=== PATIENT | female | born 1945 | race African-American/Black ===

== ENCOUNTER 2024-07-15 15:07 | Outpatient (CLI) | payer MEDICARE, SELFPAY ==
--- NOTE | ~2024-07-15 | MM_ITS ---
EXAMINATION: MM screening eladio BI w lottie HISTORY: Screening mammogram, family history of breast cancer in her mother. TECHNIQUE: Craniocaudal and mediolateral oblique 3-D tomosynthesis images were obtained and synthetic 2-D images were generated. CAD analysis was submitted and interpreted. COMPARISON: No prior mammogram is available for comparison at this institution. BREAST PARENCHYMAL COMPOSITION:Not Dense. The breasts are almost entirely fatty FINDINGS: No suspicious mass, calcification, or architectural distortion are identified in either haley ast to suggest malignancy. There has been no suspicious interval change. IMPRESSION: No mammographic evidence of malignancy. Recommend routine screening mammography in one year. BI-RADS Category 1: Negative Reviewed, dictated and finalized at location .
--- OUTSIDE RECORDS SUMMARY | 2024-07-15 16:25 | XMS_ITS | Referral Summary ---
Author Organization [address] Address [address] [place] [id number] Care Team Providers Care Gravel Weigher Name Role Phone Rajan Rodriguez MD Primary Care Provider [phone] Allergies Active Allergy Reactions Criticality Noted Date Comments Lisinopril Cough Low 12/16/2018 Sulfa (Sulfonamide Antibiotics) Hives Reaction: Hives, , Medications labetaloL (NORMODYNE,HOLLOWAY DATE) 200 mg tablet TAKE 1 TABLET(200 MG) BY MOUTH TWICE DAILY 180 tablet 3 02/04/2023 Active fluticasone propionate (FLONASE) 50 mcg/actuation nasal spray SHAKE LIQUID AND USE 2 SPRAYS IN EACH NOSTRIL DAILY 48 g 3 06/12/2023 Active losartan (COZAAR) 50 mg tablet TAKE 1 TABLET(50 MG) BY MOUTH DAILY 90 tablet 3 08/25/2023 Active ALPRAZolam (XANAX) 0.25 mg tablet Take 1 tablet (0.25 mg total) by mouth 3 (three) times a day as needed for anxiety 20 tablet 10/29/2023 Active atorvastatin (LIPITOR) 20 mg tablet TAKE 1 TABLET BY MOUTH DAILY 90 tablet 3 02/15/2024 Active Active Problems Problem Noted Date Diagnosed Date Chronic rhinitis 01/12/2020 Assessment & Plan (02/13/2023 12:28 PM CDT): Recurrent rhinitis. Assessment & Plan (07/16/2022 5:27 PM MOLD TOOLING TECHNICIAN): Continue with OTC Flonase and p.r.n. OTC antihistamines. Assessment & Plan (01/12/2020 7:46 PM CDT): Flonase 2 sprays into each nostril while looking down over the sink, do not sniff in or blow nose after use for at least 30 minutes Bilateral hearing loss 01/12/2020 Assessment & Plan (01/12/2020 7:46 PM CDT): Hearing test with [facility] Impacted cerumen of left ear 01/12/2020 Assessment & Plan (01/12/2020 7:45 PM CDT): Avoid ear cleaning techniques Avoid water to ears Candidiasis 10/03/2015 Pure hypercholesterolemia 07/11/2015 Overview (08/15/2016): Hyperlipidemia LDL goal <130 Assessment & Plan (08/27/2023 9:05 PM CDT): Target LDL less than 100. Continue current diet and atorvastatin. Assessment & Plan (02/13/2023 12:29 PM CDT): Target LDL less than 100. Continue current diet and atorvastatin. Check CMP and FLP. Assessment & Plan (07/16/2022 5:26 PM MOLD TOOLING TECHNICIAN): Target LDL less than 100. Continue current diet and atorvastatin. Assessment & Plan (12/20/2021 5:15 PM CDT): Target LDL less than 100. Continue current diet and atorvastatin. Check CMP and FLP. Atopic rhinitis 09/25/2013 Overview (08/14/2016): ALLERGIC RHINITIS NOS Deformity of foot 09/25/2013 Overview (08/14/2016): Foot Deformity Family history of malignant neoplasm of gastrointestinal tract 09/25/2013 Overview (08/14/2016): FAMILY HX-GI MALIGNANCY Assessment & Plan (02/13/2023 12:29 PM CDT): Patient still wishes to postpone colonoscopy. Benign hypertension 09/25/2013 Overview (08/16/2016): BENIGN HYPERTENSION Assessment & Plan (08/27/2023 9:06 PM CDT): Target BP less than 130/80. Continue current diet, labetalol and losartan. Assessment & Plan (02/13/2023 12:29 PM CDT): Target BP less than 130/80. Continue current diet, labetalol and losartan. Check CBC and CMP. Assessment & Plan (07/16/2022 5:27 PM MOLD TOOLING TECHNICIAN): Target BP <140/90. Continue current diet, labetalol and losartan. Assessment & Plan (12/20/2021 5:15 PM CDT): Target BP <140/90. Continue current diet and medications. Check CBC and CMP. History of colonic polyps 03/31/2012 Overview (08/15/2016): PRSNL HST COLONIC POLYPS Assessment & Plan (08/27/2023 9:05 PM CDT): Last colonoscopy 2015. Assessment & Plan (02/13/2023 12:29 PM CDT): Patient still wishes to postpone colonoscopy. Assessment & Plan (07/16/2022 5:26 PM MOLD TOOLING TECHNICIAN): Patient due for colonoscopy. Encouraged patient to schedule. Resolved Problems Problem Noted Date Diagnosed Date Resolved Date Primary osteoarthritis of both knees 07/11/2015 10/19/2019 Overview (08/15/2016): Primary osteoarthritis of both knees Adiposity 11/22/2014 12/26/2016 Overview (08/15/2016): Obesity Multiple-type hyperlipidemia 09/25/2013 12/26/2016 Overview (08/14/2016): MIXED HYPERLIPIDEMIA Pain in joint involving pelv ic region and thigh 09/01/2013 10/19/2019 Overview (08/14/2016): JOINT PAIN-PELVIS Immunizations Immunization Administration Dates Next Due Influenza, Quadrivalent, Hig h Dose, Preservative Free, Intrr 02/13/2023,02/04/2020 Influenza, Split 02/25/2011,03/09/2010 Influenza, Trivalent, High D ose, Split, Preservative Free, Intramuscular 02/26/2019,02/26/2019,02/24/2018,03/21,01/16/2016,03/13/2015 Influenza, Trivalent, IM (MDV) 4,02/09/2014,03/12/2013,03/03,02/10/2012,03/01/2008 Influenza, Unspecified 04/11/2022,2020,02/25/2018,02/25,03/22/2017,03/22/2017 Moderna SARS-CoV-2 Monovalen t Vaccination (12+ YRS) 03/28/2021,07/14/2020,06/16/2020 Moderna Sars-cov-2 Bivalent Vaccine 50 Mcg/0.5 mL (12+ YRS)-Blue/Carter 04/11/2022 Pneumococcal Conjugate PCV 13 03/13/2015, 015 Pneumococcal Polysaccharide PPV23 12/01/2008 Td, adsorbed 08/10/2007 ZOSTER LIVE 08/10/2007 Social History Tobacco Use Types Packs/Day Years Used Date Smoking Tobacco: Never Smokeless Tobacco: Never Tobacco Cessation:Counseling Given: Not Answered Alcohol Use Standard Drinks/Week Comments Yes 0 (1 standard drink = 0.6 oz pur e alcohol) PHQ-2 Answer Date Recorded PHQ-2 Total Score (If total score is 3 or more points, staff should administer the PHQ-9) 0 02/13/2023 Comments No Sex and Gender Information Value Date Recorded Sex Assigned at Not on file Legal Sex Female 7:41 PM MOLD TOOLING TECHNICIAN Gender Identity Not on file Sexual Orientation Not on file 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 Not on file Not on file Not on file Last Filed Vital Signs Vital Sign Reading Time Taken Comments Blood Pressure 129/74 08/27/2023 1:18 PM CDT Pulse 76 08/27/2023 12:59 PM CDT Temperature 37.1 C (98.8 F) 03/11/2022 5:43 PM CDT Respiratory Rate 18 03/11/2022 5:43 PM CDT Oxygen Saturation 96% 08/27/2023 12:59 PM CDT Inhaled Oxygen Concentration - - Weight 115 kg (253 lb 8 oz) 08/27/2023 12:59 PM CDT Height 160.7 cm (5' 3.25 ) 08/27/2023 12:59 PM C DT Body Mass Index 44.55 08/27/2023 12:59 PM CDT Plan of Treatment Not on file Procedures Procedure Name Priority Date/Time Associated Diagnosis Comments COLONOSCOPY Routine 05/09/2016 from Last 3 Months or Most Recently Relevant to Health Maintenance Results * Colonoscopy (05/09/2016) Anatomical Region Laterality Modality Other Rajan Rodriguez MD ENDOSCOPY PROCEDURES Final Re sult from Last 3 Months or Most Recently Relevant to Health Maintenance Insurance MEDICARE SOLUTIONS [facility] MEDICARE [facility] MEDICARE Care Teams Gravel Weigher Relationship Specialty Start Date End Date Rajan Rodriguez MD [address] [place] [address] DR Leod[address] LINN [address] [place] [id number] PCP - General 08/09/16
--- OUTSIDE RECORDS SUMMARY | 2024-07-15 16:25 | XMS_ITS | Encounter Summary ---
Author Organization [facility] Address [address] [facility] [place] [address] Care Team Providers Care Automobile Mechanic Name Role Phone Miguel Ángel FONTENOT MD, Oziel Unavailable [phone] Rajan Rodriguez MD Primary Care Provider [phone] Encounter Details Date Type Department Care Team (Late st Contact Info) Description 07/22/2016 [facility] Outpatient Visit [facility] Orthopedics [address] [place] [address], [address] [address] Unknown, Provider Social History Tobacco Use Types Packs/Day Years Used Date Smoking Tobacco: Never Alcohol Use Standard Drinks/Week Comments Yes 0 (1 standard drink = 0.6 oz pur e alcohol) RARE Sex and Gender Information Value Date Recorded Sex Assigned at Not on file Gender Identity Not on file Sexual Orientation Not on file documented as of this encounter Functional Status Functional Status Response Date of Assess ment Is person deaf or have serious hearing difficult y? No 07/07/2016 Is person blind or have serious difficulty seein g? No 07/07/2016 Does person have serious dif ficulty walking/climbing stairs? No 07/07/2016 Does person have difficulty dressing/bathing? No 07/07/2016 Does person have difficulty doing errands alone? No 07/07/2016 Cognitive Status Response Date of Assessm ent Does person have difficulty concentrating/remembering/making decisions? No 07/07/2016 documented as of this encounter Plan of Treatment Not on file documented as of this encounter Visit Diagnoses Not on filedocumented in this encounter Care Teams Automobile Mechanic Relationship Specialty Start Date End Date Rajan Rodriguez MD [address] [address] [place] [facility] [address] [place] [address] PCP - General Internal Medicine 08/01/14 [place] [address] [address] [facility] [place] [address] [place] [address] Orthopedic Surgery 08/01/14 documented as of this encounter
--- OUTSIDE RECORDS SUMMARY | 2024-07-15 16:25 | XMS_ITS | Encounter Summary ---
Author Organization [facility] Medical [facility] Address [address] [facility] [address] [place] [address] Care Team Providers Care Natural Gas Field Processing Supervisor Name Role Phone Rajan Rodriguez MD Primary Care Provider [phone] Rajan Rodriguez MD Primary Care Provider [phone] Rajan Rodriguez MD Primary Care Provider [phone] Rajan Rodriguez MD Primary Care Provider [phone] Rajan Rodriguez MD Primary Care Provider [phone] Encounter Details Date Type Department Care Team (Late st Contact Info) Description 03/10/2009 Orders Only [facility] [address] [place] [address] Scanning, Provider Social History Tobacco Use Types Packs/Day Years Used Date Smoking Tobacco: Never Assessed Comments Unknown Sex and Gender Information Value Date Recorded Sex Assigned at Not on file Legal Sex Female 7:41 PM PROMOS EXECUTIVE PRODUCER Gender Identity Not on file Sexual Orientation Not on file documented as of this encounter Plan of Treatment Not on file documented as of this encounter Procedures Procedure Name Priority Date/Time Associated Diagnosis Comments GI - RESULT 03/10/2009 documented in this encounter Results * GI - RESULT (03/10/2009) Anatomical Region Laterality Modality Other us Provider Scanning Final Result documented in this encounter Visit Diagnoses Not on filedocumented in this encounter Care Teams Natural Gas Field Processing Supervisor Relationship Specialty Start Date End Date Lieu, Rajan H., MD [address] [place] [address] PCP - General 08/09/16 Rajan Rodriguez MD [facility] [address] [place] [address] PCP - General 06/13/16 08/08/16 Rajan Rodriguez MD [facility] [address] [place] [address] PCP - General 03/19/16 06/12/16 Rajan Rodriguez MD [facility] [place] [address] PCP - General 07/11/15 03/18/16 Rajan Rodriguez MD [facility] [address] [place] [address] PCP - General 11/23/07 07/10/15 documented as of this encounter
--- OUTSIDE RECORDS SUMMARY | 2024-07-15 16:25 | XMS_ITS | Encounter Summary ---
Author Organization [facility] Address [address] [facility] [place] [address] Care Team Providers Care It Application Development Manager Name Role Phone Miguel Ángel FONTENOT MD, Oziel Unavailable [phone] Rajan Rodriguez MD Primary Care Provider [phone] Encounter Details Date Type Department Care Team (Late st Contact Info) Description 02/15/2015 Therapy Visit [facility] Orthopedics [address] [facility] [address] [place] [address] [place] [address] [address] Social History Tobacco Use Types Packs/Day Years Used Date Smoking Tobacco: Never Alcohol Use Standard Drinks/Week Comments Yes 0 (1 standard drink = 0.6 oz pur e alcohol) Sex and Gender Information Value Date Recorded Sex Assigned at Not on file Gender Identity Not on file Sexual Orientation Not on file documented as of this encounter Functional Status Functional Status Response Date of Assess ment Is person deaf or have serious hearing difficult y? No 01/24/2015 Is person blind or have serious difficulty seein g? No 01/24/2015 Does person have serious dif ficulty walking/climbing stairs? No 01/24/2015 Does person have difficulty dressing/bathing? No 01/24/2015 Does person have difficulty doing errands alone? No 01/24/2015 Cognitive Status Response Date of Assessm ent Does person have difficulty concentrating/remembering/making decisions? No 01/24/2015 documented as of this encounter Plan of Treatment Not on file documented as of this encounter Visit Diagnoses Not on filedocumented in this encounter Care Teams It Application Development Manager Relationship Specialty Start Date End Date Rajan Rodriguez MD [address] [facility] [address] [place] [facility] [address] [place] [address] PCP - General Internal Medicine 08/01/14 [place] [address] [address] [facility] [address] [place] [address] Orthopedic Surgery 08/01/14 documented as of this encounter
--- OUTSIDE RECORDS SUMMARY | 2024-07-15 16:25 | XMS_ITS | Encounter Summary ---
Author Organization [facility] Address [address] [address] Care Team Providers Care Vault Cashier Name Role Phone Rajan Rodriguez MD Primary Care Provider [phone] Rajan Rodriguez MD Primary Care Provider Rajan Rodriguez MD Primary Care Provider [phone] Encounter Details Date Type Department Care Team (Late st Contact Info) Description 06/11/2016 Orders Only [facility] at [facility] ProviderKenyatta MD [address] [place] [id number] Social History Tobacco Use Types Packs/Day Years Used Date Smoking Tobacco: Never Assessed Comments Unknown Sex and Gender Information Value Date Recorded Sex Assigned at Not on file Legal Sex Female 7:41 PM WRITER TECHNICAL PUBLICATIONS Gender Identity Not on file Sexual Orientation Not on file documented as of this encounter Plan of Treatment Not on file documented as of this encounter Procedures Procedure Name Priority Date/Time Associated Diagnosis Comments CARDIOLOGY REPORT 06/11/2016 documented in this encounter Results * CARDIOLOGY REPORT (06/11/2016) Anatomical Region Laterality Modality Other Narrative 06/11/2016 Ordered by an unspecified provider. Historical Provider [facility] MARILOU PATEL Final Result documented in this encounter Visit Diagnoses Not on filedocumented in this encounter Care Teams Vault Cashier Relationship Specialty Start Date End Date Rajan Rodriguez MD [facility] [address] [place] [address] PCP - General 08/09/16 Rajan Rodriguez MD [address] [place] [address] PCP - General 06/13/16 08/08/16 Rajan Rodriguez MD [address] [place] [address] PCP - General 03/19/16 06/12/16 documented as of this encounter
--- OUTSIDE RECORDS SUMMARY | 2024-07-15 16:25 | XMS_ITS | Patient Health Summary ---
Author Organization [facility] Address [address] [place] [address] Care Team Providers Care Scientific Advisor Name Role Phone Miguel Ángel FONTENOT MD, Oziel Unavailable [phone] Rajan Rodriguez MD Primary Care Provider [phone] Note from [facility],non-owned Affiliates and Associated Physician Practices is amultiple site organization consisting of ambulatory clinics and hospital sitesin [place], [place], [place] and [place]. This disclosure is being madepursuant to the Care Everywhere program and may not contain all information available regarding this patient. Last updated 18.[facility] Allergies * Sulfa Drugs(Swelling) Medications * Be aware that medications may not be up to date on this document. Alwaysverify current medications with the patient. * lisinopril (PRINIVIL; ZESTRIL) 20 MG tablet Take 20 mg by mouth once daily. * ezetimibe (ZETIA) 10 MG tablet Take 10 mg by mouth once daily. * tetrahydrozoline (VISINE) 0.05 % ophthalmic solution Instill 1 Drop into both eyes as needed for Itchy Eyes * labetalol (NORMODYNE; TRANDATE) 100 MG tablet(Started 07/07/2016) Take 0.5 Tabs by mouth 2 times daily 1 refill remaining * Cetirizine HCl (ZYRTEC ALLERGY PO) * Loperamide-Simethicone (IMODIUM ADVANCED PO) * senna-docusate (SENOKOT-S) 8.6-50 MG tablet(Started 02/01/2017) Take 1 Tab by mouth 2 times daily * HYDROcodone-acetaminophen (NORCO) 10-325 MG tablet(Started 02/01/2017) Take 0.5-1 Tabs by mouth every 6 hours as needed for Pain * HYDROcodone-acetaminophen (NORCO) 7.5-325 MG tablet(Started 02/20/2017) Take 1 tablet by mouth every 8 hours as needed for Pain Active Problems Problem Noted Date Diagnosed Date Knee joint replacement status 01/30/2017 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 Bilateral hip pain 08/01/2014 Social History Tobacco Use Types Packs/Day Years Used Date Smoking Tobacco: Never Smokeless Tobacco: Never Alcohol Use Standard Drinks/Week Comments Yes 0 (1 standard drink = 0.6 oz pur e alcohol) RARE Sex and Gender Information Value Date Recorded Sex Assigned at Not on file Gender Identity Not on file Sexual Orientation Not on file Last Filed Vital Signs Vital Sign Reading Time Taken Comments Blood Pressure 137/51 02/02/2017 7:53 AM CDT Pulse 80 02/02/2017 7:53 AM CDT Temperature 36.7 C (98.1 F) 02/02/2017 7:53 AM CDT Respiratory Rate 18 02/02/2017 7:53 AM CDT Oxygen Saturation 100% 02/02/2017 7:53 AM CDT Inhaled Oxygen Concentration 21% 09/14/2014 7 :10 PM CDT Weight 112.1 kg (247 lb 3.2 oz) 01/30/2017 6:01 AM CDT Height 162.6 cm (5' 4 ) 01/30/2017 6:01 AM CDT Body Mass Index 42.43 01/30/2017 6:01 AM CDT Medical Devices Implanted Type Area Log Getter Device Identifier Shelf Expiration Date Model / Serial / Lot Acetabular Cup Implanted:Qty: 1 on 09/13/2014 by Oziel Del Rosario IV, MD at [facility] Right: Hip [employer] 10/11/2023 [id number] / / [id number] Acetabular Liner Implanted:Qty: 1 on 09/13/2014 by Oziel Del Rosario IV, MD at [facility] Right: Hip [employer] 06/12/2019 [id number] / / [id number] Scrw Selftap Lo Prof Ti 6.5 X 35mm Implanted:Qty: 1 on 09/13/2014 by Oziel Del Rosario IV, MD at [facility] Right: Hip [employer] 07/10/2024 [id number] / / [id number] High Offset Femoral Stem Implanted:Qty: 1 on 09/13/2014 by Oziel Del Rosario IV, MD at [facility] Right: Hip [employer] 02/10/2024 [id number] / / [id number] Ceramic Head Implanted:Qty: 1 on 09/13/2014 by Oziel Del Rosario IV, MD at [facility] Right: Hip [employer] 08/10/2024 [id number] / / [id number] Taper Adapter Implanted:Qty: 1 on 09/13/2014 by Oziel Del Rosario IV, MD at [facility] Right: Hip [employer] 06/12/2024 [id number] / / [id number] Biomet Acetabular Liner, 36mm Implanted:Qty: 1 on 01/24/2015 by Oziel Del Rosario IV, MD at [facility] Left: Hip 11/15/2019 [id number] / / [id number] Bi[employer] Ceramic Head, 36mm Implanted:Qty: 1 on 01/24/2015 by Oziel Del Rosario IV, MD at [facility] Left: Hip 12/08/2024 650-1057 / / [id number] Biomet, Reduced Distal High Offset Femoral Stem, 11 X 107 Implanted:Qty: 1 on 01/24/2015 by Oziel Del Rosario IV, MD at [facility] Left: Hip 07/09/2024 [id number] / / [id number] Bi[employer] Taper Adapter, Minus 3mm Implanted:Qty: 1 on 01/24/2015 by Oziel Del Rosario IV, MD at [facility] Left: Hip 01/05/2025 [id number] / / [id number] [employer] Acetabular Shell, 52mm Implanted:Qty: 1 on 01/24/2015 by Oziel Del Rosario IV, MD at [facility] Left: Hip 12/13/2024 [id number] / / [id number] Gautam Bone [place]-G Hv 40/20 Implanted:Qty: 1 on 07/04/2016 by Parveen Pandey MD at [facility] Left: Knee [employer] [id number] 10/09/2017 [id number] / / [id number] 28mm X 8mm Standard Patella Implanted:Qty: 1 on 07/04/2016 by Parveen Pandey MD at [facility] Left: Knee [employer] 06/03/2018 [id number] / / Cmpnt Fem Kn Lt Cr Cmnt Prm Vngrd Intlk Implanted:Qty: 1 on 07/04/2016 by Parveen Pandey MD at [facility] Left: Knee [employer] [id number] 05/09/2026 [id number] / / [id number] Tray Tib 71mm Kn Cocr I Beam Implanted:Qty: 1 on 07/04/2016 by Parveen Pandey MD at [facility] Left: Knee [employer] [id number] 05/17/2026 [id number] / / [id number] Brng [id number] Vngrd Arcm Kn Ant Stab Implanted:Qty: 1 on 07/04/2016 by Parveen Pandey MD at [facility] Left: Knee [employer] [id number] 09/10/2020 [id number] / / [id number] Gautam Bone [place]-G Hv 40/20 Implanted:Qty: 1 on 01/30/2017 by Parveen Pandey MD at [facility] Left: Knee [employer] 09/08/2017 [id number] / / [id number] Tray Tib 75mm Kn Cocr I Beam Implanted:Qty: 1 on 01/30/2017 by Parveen Pandey MD at [facility] Left: Knee Migdalia [employer] 05/21/2026 [id number] / / [id number] Cmpnt Fem Kn Rt Cr Cmnt Prm Vngrd Intlk 65mm Implanted:Qty: 1 on 01/30/2017 by Parveen Pandey MD at [facility] Left: Knee [employer] 10/20/2026 [id number] / / [id number] Cmpnt Ptlr 28mm 1 Pg Wire Ascnt Arcm Kn Implanted:Qty: 1 on 01/30/2017 by Parveen Pandey MD at [facility] Left: Knee [employer] 11/27/2021 [id number] / / [id number] Brng [id number] Vngrd Arcm Kn Ant Stab Implanted:Qty: 1 on 01/30/2017 by Parveen Pandey MD at [facility] Left: Knee [employer] 01/16/2022 [id number] / / [id number] Explanted Type Area Log Getter Device Identifier Shelf Expiration Date Model / Serial / Lot Ceramic Head Implanted:Qty: 1 Explanted:Qty: 1 on 09/13/2014 at [facility] Right: Hip [employer] 08/10/2024 [id number] / / [id number] Taper Adapter Explanted:Qty: 1 on 09/13/2014 at [facility] Right: Hip [employer] 02/10/2024 650-1065 / / [id number] Procedures * XR KNEE BILAT 3VW(Performed 03/24/2018) Performed for Status post bilateral knee replacements * XR KNEE RIGHT 3VW(Performed 03/13/2017) Performed for Status post right knee replacement * HGB HCT PANEL(Performed 02/01/2017) * HGB HCT PANEL(Performed 01/31/2017) * NEURAXIAL BLOCK(Performed 01/30/2017) * ARTHROPLASTY TOTAL KNEE(Performed 01/30/2017) * CBC W AUTO DIFFERENTIAL(Performed 01/14/2017) Performed for Preop examination * COMPREHENSIVE METABOLIC PANEL(Performed 01/14/2017) Performed for Preop examination * CULTURE MSSA/MRSA(Performed 01/14/2017) Performed for Preop examination * EKG 12-LEAD(Performed 01/14/2017) Performed for Preop examination * XR KNEE LEFT 3VW(Performed 08/13/2016) Performed for Primary osteoarthritis of left knee * LAB RESULTS ORDER(Performed 07/08/2016) * CARDIAC ECHOCARDIOGRAM COMPLETE ORDER(Performed 07/08/2016) * HGB HCT PANEL(Performed 07/06/2016) * HGB HCT PANEL(Performed 07/05/2016) * NEURAXIAL BLOCK(Performed 07/04/2016) * ARTHROPLASTY TOTAL KNEE(Performed 07/04/2016) * EKG 12-LEAD(Performed 06/11/2016) Performed for Preop examination * CBC W AUTO DIFFERENTIAL(Performed 06/11/2016) Performed for Preop examination * COMPREHENSIVE METABOLIC PANEL(Performed 06/11/2016) Performed for Preop examination * CULTURE MSSA/MRSA(Performed 06/11/2016) Performed for Preop examination * XR KNEE BILAT 3VW(Performed 04/23/2016) Performed for Primary osteoarthritis of both knees * XR KNEE BILAT 3VW(Performed 04/13/2015) Performed for History of total hip replacement, left, Knee pain, unspecified laterality * XR HIP LEFT 2VW OR MORE(Performed 04/13/2015) Performed for History of total hip replacement, left * XR HIP LEFT 2VW OR MORE(Performed 02/16/2015) Performed for Bilateral hip pain * HGB HCT PANEL(Performed 01/26/2015) * HGB HCT PANEL(Performed 01/25/2015) * ARTHROPLASTY TOTAL HIP (ANTERIOR)(Performed 01/24/2015) Performed for Osteoarthrosis, unspecified whether generalized or localized, lower leg * OT EVAL AND TREAT(Performed 01/24/2015) * XR HIP LEFT INTRAOPERATIVE 1VW(Performed 01/24/2015) Performed for Chronic left hip pain * NEURAXIAL BLOCK(Performed 01/24/2015) * HGB HCT PANEL(Performed 01/03/2015) Performed for Preop examination * CULTURE MSSA/MRSA(Performed 01/03/2015) Performed for Preop examination * XR HIP RIGHT 2VW OR MORE(Performed 12/08/2014) Performed for Right hip pain * XR HIP RIGHT 2VW OR MORE(Performed 10/06/2014) Performed for H/O total hip arthroplasty, right * HGB HCT PANEL(Performed 09/15/2014) * HGB HCT PANEL(Performed 09/14/2014) * ARTHROPLASTY TOTAL HIP (ANTERIOR)(Performed 09/13/2014) Performed for Osteoarthrosis, unspecified whether generalized or localized, pelvic region and thigh * OT EVAL AND TREAT(Performed 09/13/2014) * XR HIP RIGHT INTRAOPERATIVE 1VW(Performed 09/13/2014) Performed for Osteoarthrosis * NEURAXIAL BLOCK(Performed 09/13/2014) * CBC W AUTO DIFFERENTIAL(Performed 08/23/2014) Performed for Preop examination * COMPREHENSIVE METABOLIC PANEL(Performed 08/23/2014) Performed for Preop examination * CULTURE MSSA/MRSA(Performed 08/23/2014) Performed for Preop examination * EKG 12-LEAD(Performed 08/23/2014) Performed for Preop examination * XR PELVIS W BILAT HIP 2VW(Performed 08/01/2014) Performed for Bilateral hip pain Results * XR KNEE BILAT 3VW (03/24/2018 10:54 AM AGING ROOM OPERATOR) Only the most recent of3 resultswithin the time period is included. Anatomical Region Laterality Modality Lower Extremity Computed Radiogr aphy Narrative 03/27/2018 4:26 PM AGING ROOM OPERATOR Mary Bateman, RT(R) 03/27/2018 4:26 PM See progress notes for results Alisson Colon PA-C DIAGNOSTIC IM AGING ORDERABLES * XR KNEE 3 VW RIGHT (03/13/2017 4:10 PM CDT) Anatomical Region Laterality Modality Lower Extremity Computed Radiogr aphy Narrative 03/13/2017 4:43 PM CDT Pauline Bernal, RT(R) 03/13/2017 4:43 PM See Chart For Xray Report Pareven Pandey MD DIAGNOSTIC IMAGING [place] * (ABNORMAL) HGB HCT PANEL (02/01/2017 4:10 AM CDT) Only the most recent of9 resultswithin the time period is included. Hemoglobin 9.2(L) 12.0 - 15.6 gm/dL 02/01/2017 4:38 AM CDT [facility] Hematocrit 29.9(L) 35.9 - 45.5 % 02/01/2017 4:38 AM CDT [facility] Blood BLOOD SPECIMEN / Unknown Venipuncture / Unknown 02/01/2017 4:10 AM CDT 02/01/2017 4:32 AM CDT Parveen Pandey MD LAB - HEMATOLOGY ORD ERABLES Performing Organization Address City/[facility]/ZIP Co de Phone Number [facility] [address] [place] [address] * CULTURE MSSA/MRSA (01/14/2017 3:03 PM CDT) Only the most recent of4 resultswithin the time period is included. Pathologist [facility] Culture Negative for Staphylococcus aureus (MRSA/MSSA) BLADIMIR 01/16/2017 8:21 AM CDT [facility] Microbiology SPECIMEN FROM NASAL FOSSAE / Unknown Collection / Unknown 01/14/2017 3:03 PM CDT 01/14/2017 3:02 PM CDT Parveen Pandey MD LAB - MICROBIOLOGY O RDERABLES Performing Organization Address City/[facility]/ZIP Co de Phone Number [facility] [address] [phone] * (ABNORMAL) CBC W AUTO DIFFERENTIAL (01/14/2017 3:03 PM CDT) Only the most recent of3 resultswithin the time period is included. Pathologist [facility] WBC 7.1 4.4 - 10.7 x10E9/L 01/14/2017 3:08 PM CDT [facility] WBC Corrected x10E9/L 01/14/2017 3:08 PM CDT [facility] RBC 3.96 3.80 - 5.20 x10E12/L 01/14/2017 3:08 PM CDT [facility] Hemoglobin 11.1(L) 12.0 - 15.6 gm/dL 01/14/2017 3:08 PM CDT [facility] Hematocrit 35.6(L) 35.9 - 45.5 % 01/14/2017 3:08 PM CDT [facility] MCV 89.9 80.7 - 98.3 fl 01/14/2017 3:08 PM CDT [facility] MCH 28.0 26.7 - 34.0 pg 01/14/2017 3:08 PM CDT [facility] MCHC 31.2 30.8 - 35.9 gm/dL 01/14/2017 3:08 PM CDT [facility] Platelet Count 161 153 - 416 x10E9/L 01/14/2017 3:08 PM CDT [facility] RDW-CV 12.3 12.1 - 14.9 % 01/14/2017 3:08 PM T [facility] MPV 11.9 9.4 - 12.9 fl 01/14/2017 3:08 PM CDT [facility] Neutrophils % 55.2 44.0 - 73.0 % 01/14/2017 3:08 PM T [facility] Lymphocytes % 31.1 20.0 - 43.0 % 01/14/2017 3:08 PM T [facility] Monocytes % 7.6 5.0 - 13.0 % 01/14/2017 3:08 PM T [facility] Eosinophils % 5.1 0.0 - 6.0 % 01/14/2017 3:08 PM T [facility] Basophils % 0.6 0.0 - 2.0 % 01/14/2017 3:08 PM T [facility] Immature Granulocytes 0.4 0 - 1 % 01/14/2017 3:08 PM CDT [facility] Neutrophil Absolute 3.91 2.01 - 7.14 x10E9/L 01/14/2017 3:08 PM CDT [facility] Lymphocytes Absolute 2.20 1.07 - 3.94 x10E9/L 01/14/2017 3:08 PM T [facility] Monocytes Absolute 0.54 0.26 - 1.07 x10E9/L 01/14/2017 3:08 PM CDT [facility] Eosinophils Absolute 0.36 0 - 0.47 x10E9/L 01/14/2017 3:08 PM T [facility] Basophils Absolute 0.04 0 - 0.08 x10E9/L 01/14/2017 3:08 PM T [facility] Immature Granulocytes Absolute 0.03 0.00 - 0.06 x10E9/L 01/14/2017 3:08 PM T [facility] nRBC Auto 0 /100 WBC 01/14/2017 3:08 PM T [facility] Blood BLOOD SPECIMEN / Unknown Venipuncture / Unknown 01/14/2017 3:03 PM CDT 01/14/2017 3:02 PM CDT Parveen Pandey MD LAB - HEMATOLOGY ORD ERABLES [facility] [address] [place] [address] * (ABNORMAL) COMPREHENSIVE METABOLIC PANEL (01/14/2017 3:03 PM CDT) Only the most recent of3 resultswithin the time period is included. [facility] Glucose 91 74 - 106 mg/dL 01/14/2017 3:23 PM CDT [facility] Sodium 143 136 - 145 mmol/L 01/14/2017 3:23 PM CDT [facility] Potassium 5.0 3.5 - 5.1 mmol/L 01/14/2017 3:23 PM CDT [facility] Chloride 110(H) 98 - 107 mmol/L 01/14/2017 3:23 PM CDT [facility] CO2 26 22 - 31 mmol/L 01/14/2017 3:23 PM CDT [facility] Calcium 9.0 8.5 - 10.1 mg/dL 01/14/2017 3:23 PM CDT [facility] Anion Gap 7(L) 8 - 16 mmol/L 01/14/2017 3:23 PM CDT [facility] BUN 14 7 - 21 mg/dL 01/14/2017 3:23 PM CDT [facility] Creatinine 1.30 0.50 - 1.30 mg/dL 01/14/2017 3:23 PM CDT [facility] Alkaline Phosphatase 83 38 - 126 U/L 01/14/2017 3:23 PM CDT [facility] ALT 18 13 - 61 U/L 01/14/2017 3:23 PM CDT [facility] AST 17 5 - 40 U/L 01/14/2017 3:23 PM CDT [facility] Protein Total 7.5 6.4 - 8.2 gm/dL 01/14/2017 3:23 PM CDT [facility] Albumin 3.8 3.4 - 5.0 gm/dL 01/14/2017 3:23 PM CDT [facility] Bilirubin Total 0.5 0.2 - 1.0 mg/dL 01/14/2017 3:23 PM CDT [facility] eGFR by MDRD 40 mL/min/1.7 3m2 01/14/2017 3:23 PM CDT [facility] eGFR by MDRD 49 mL/min/1.7 3m2 01/14/2017 3:23 PM CDT [facility] Blood BLOOD SPECIMEN / Unknown Venipuncture / Unknown 01/14/2017 3:03 PM CDT 01/14/2017 3:02 PM CDT Parveen Pandey MD LAB - CHEMISTRY DAMON RICARDO [facility] [address] [place] [address] * EKG 12-LEAD (01/14/2017 1:19 PM CDT) Only the most recent of3 resultswithin the time period is included. Ventricular Rate 58 BPM [facility] Atrial Rate 58 BPM [facility] P-R Interval 130 ms [facility] QRS Duration ms 88 ms [facility] Q-T Interval ms 410 ms [facility] QTC Calculation (Bezet) 402 ms [facility] Calculated P Adair 34 degrees [facility] Calculated R Adair 8 degrees [facility] Calculated T Adair 38 degrees [facility] Interpretation EKG Sinus bradycardia Minimal voltage criteria for LVH, may be normal variant Borderline ECG When compared with ECG of 11-JUN-2016 14:43, No significant change was found Confirmed by DHARMESH MALLOY MD ([id number]) on 01/15/2017 11:16:43 AM [facility] 01/14/2017 1:19 PM CDT 01/15/2017 11:16 AM CDT Parveen Pandey MD ECG ORDERABLES Performing Organization Address City/[facility]/ZIP Co de Phone Number [facility] * XR KNEE 3 VW LEFT (08/13/2016 3:36 PM CDT) Anatomical Region Laterality Modality Lower Extremity Computed Radiogr aphy Narrative 08/13/2016 4:52 PM CDT Ruthy Fuentes 08/13/2016 4:52 PM Please see progress notes for result. Parveen Pandey MD DIAGNOSTIC IMAGING O RDERABLES * LAB RESULTS ORDER (07/08/2016 7:32 PM AGING ROOM OPERATOR) Narrative 07/08/2016 7:32 PM AGING ROOM OPERATOR Ordered by an unspecified provider. Scanned Document LAB - THERAPEUTIC DR HERNANDEZ MONITORING ORDERABLES * CARDIAC ECHOCARDIOGRAM COMPLETE ORDER (07/08/2016 7:32 PM AGING ROOM OPERATOR) Narrative 07/08/2016 7:32 PM AGING ROOM OPERATOR Ordered by an unspecified provider. Scanned Document ECHO ORDERABLES * XR HIP 2+ VW LEFT (04/13/2015 11:35 AM AGING ROOM OPERATOR) Only the most recent of2 resultswithin the time period is included. Anatomical Region Laterality Modality Pelvis, Lower Extremity Radiogra phic Imaging Narrative 04/21/2015 10:25 AM AGING ROOM OPERATOR Mary Bateman RT(R) 04/21/2015 10:25 AM See progress notes for results Oziel Del Rosario IV, MD DIAGNOSTIC IMAGING O RDERABLES * XR HIP LEFT INTRAOP (01/24/2015 10:07 AM CDT) Anatomical Region Laterality Modality Pelvis, Lower Extremity Radiogra phic Imaging 01/24/2015 12:0 7 PM CDT Narrative 01/24/2015 12:51 PM CDT LEFT HIP 6 VIEWS INTRAOPERATIVELY INDICATION: Left hip pain, left hip prosthesis placement FINDINGS: Six fluoroscopic views of the left hip were obtained, without prior. The examination shows interval placement of a left acetabular component and left femoral prosthesis in appropriate alignment. No acute fracture is otherwise seen. Followup should be performed, as needed. Edited by Suzie Goff on 01/24/2015 12:20 PM Procedure Note Santhosh Rodriguez MD - 01/24/2015 LEFT HIP 6 VIEWS INTRAOPERATIVELY INDICATION: Left hip pain, left hip prosthesis placement FINDINGS: Six fluoroscopic views of the left hip were obtained, without prior. The examination shows interval placement of a left acetabular component and left femoral prosthesis in appropriate alignment. No acute fracture is otherwise seen. Followup should be performed, as needed. Edited by Suzie Goff on 01/24/2015 12:20 PM Oziel Del Rosario IV, MD DIAGNOSTIC IMAGING [place] * NEURAXIAL BLOCK (01/24/2015 9:37 AM CDT) Sarbjit Montes APRN-CRNA - 01/24/2015 9:37 AM CDT MAO Hernandez 01/24/2015 9:37 AM NEURAXIAL BLOCK Patient Location: OR Pre Procedure Indication: at surgeon's request Anticoagulation /Antithrombosis Status Confirmed: Yes Preanesthetic Checklist: patient identified, IV checked, site marked, risks and benefits discussed, surgical consent verified, monitors and equipment checked, pre-op evaluation done, timeout performed, informed consent obtained and questions answered / anesthesia plan accepted Monitors: EKG, Pulse Ox and BP Patient Condition: sedated, meaningful contact maintained throughout procedure Patient Position: sitting Procedure Block Performed: spinal Prep: Betadine Sterile Field: sterile gloves, sterile field established, cap/hat and mask Approach: midline Skin Numbed with: lidocaine 1% Spinal Needle Type: Quincke Needle Gauge: 25 G Needle Length: 3.5 in Placement Site: L4-5 Number of Attempts: 1 CSF: free flow, aspiration before injection, aspiration during injection and aspiration after injection Local Anesthetic: bupivacaine 0.75% in dextrose 1.5 ml Events CSF return injection not painful no paresthesia no other event Degree of Difficulty: moderate Position Post Procedure: supine Vital signs monitored and stable throughout. See Anesthesia Intraop record for details. Block Start Time: 01/24/2015 8:37 AM Block End Time: 01/24/2015 8:40 AM Block Performed by: Sarbjit Hernadez CRNA Notes: [facility] spinal tray lot #[id number] Exp. 04/2016. Oziel Del Rosario IV, MD GENERAL ANESTHESIA [facility] [place] * XR HIP 2+ VW RIGHT (12/08/2014 12:29 PM CDT) Only the most recent of2 resultswithin the time period is included. Anatomical Region Laterality Modality Pelvis, Lower Extremity [facility] Narrative 12/14/2014 6:09 PM CDT Mary Bateman, RT(R) 12/14/2014 6:09 PM See progress notes for results Oziel Del Rosario IV, MD DIAGNOSTIC IMAGING [place] * XR HIP RIGHT INTRAOP (09/13/2014 10:00 AM CDT) Anatomical Region Laterality Modality Lower Extremity, Pelvis Radiogra [facility] 09/13/2014 2:06 PM CDT Narrative 09/13/2014 2:07 PM CDT AP image of the right hip History: Right hip pain Findings: Multiple intraoperative images are submitted for review. Initial image demonstrates moderate right hip osteoarthritis. Subsequent images demonstrate progressive right total hip arthroplasty. No periprosthetic fracture or dislocation is seen. A small amount of subcutaneous air is present consistent with surgical procedure. Fluoroscopy time was 24 seconds. Procedure Note Barry Alcaraz MD - 09/13/2014 AP image of the right hip History: Right hip pain Findings: Multiple intraoperative images are submitted for review. Initial image demonstrates moderate right hip osteoarthritis. Subsequent images demonstrate progressive right total hip arthroplasty. No periprosthetic fracture or dislocation is seen. A small amount of subcutaneous air is present consistent with surgical procedure. Fluoroscopy time was 24 seconds. Oziel Del Rosario IV, MD DIAGNOSTIC IMAGING [place] * NEURAXIAL BLOCK (09/13/2014 8:55 AM CDT) Narrative Barry Bauman APRN-GRADUATE STUDENT - 09/13/2014 8:55 AM CDT MAO Perez 09/13/2014 8:55 AM NEURAXIAL BLOCK Patient Location: OR Pre Procedure Indication: at surgeon's request, post-operative analgesia and surgical anesthesia Anticoagulation /Antithrombosis Status Confirmed: Yes Preanesthetic Checklist: patient identified, IV checked, site marked, risks and benefits discussed, surgical consent verified, monitors and equipment checked, pre-op evaluation done, timeout performed, informed consent obtained and questions answered / anesthesia plan accepted Monitors: BP, Pulse Ox, EKG and ETCO2 Patient Condition: sedated, meaningful contact maintained Patient Position: sitting Procedure Block Performed: spinal Prep: Betadine Sterile Field: sterile field established, sterile gloves, mask and cap/hat Approach: midline Skin Numbed with: lidocaine 1% Spinal Needle Type: pencil-point Needle Gauge: 25 G Needle Length: 3.5 in Placement Site: L2-3 Number of Attempts: 1 CSF: free flow, aspiration before injection and aspiration during injection Local Anesthetic: bupivacaine 0.75% in dextrose 2 ml Spinal Additive: fentanyl 25 mcg Events CSF return injection not painful no paresthesia no other event Degree of Difficulty: none Position Post Procedure: supine Vital signs monitored and stable throughout. See Anesthesia Intraop record for details. Block Start Time: 09/13/2014 8:54 AM Block End Time: 09/13/2014 8:54 AM Block Performed by: barry bauman crna/ dseirae martinez Barry Bauman MILL [employer]EDER-GRADUATE STUDENT GENERAL ANESTHE YEN ORDERABLES * XR HIPS BILAT 2VWS W PELVIS (08/01/2014 2:14 PM CDT) Anatomical Region Laterality Modality Pelvis, Lower Extremity Radiogra phic Imaging Narrative 08/10/2014 10:31 AM CDT Mary Bateman, RT(R) 08/10/2014 10:31 AM See progress notes for results Oziel Del Rosario IV, MD DIAGNOSTIC IMAGING O RDERABLES Care Teams Scientific Advisor Relationship Specialty Start Date End Date Rajan Rodriguez MD [facility] [facility] [address] [place] [facility] [address] [place] [address] PCP - General Internal Medicine 08/01/14 [place] [address] [facility] [address] [place] [address] Orthopedic Surgery 08/01/14
--- OUTSIDE RECORDS SUMMARY | 2024-07-15 16:25 | XMS_ITS | Clinical Summary ---
Author Organization [facility] Address [address] [facility] [place] [address] Care Team Providers Care Nursery Supervisor Name Role Phone Miguel Ángel FONTENOT MD, Oziel Unavailable [phone] Rajan Rodriguez MD Primary Care Provider [phone] Source Comments [facility],non-owned Affiliates and Associated Physician Practices is amultiple site organization consisting of ambulatory clinics and hospital sitesin [place], [place], [place] and [place]. This disclosure is being madepursuant to the Care Everywhere program and may not contain all information available regarding this patient. Last updated 18.[facility] Allergies Active Allergy Reactions Criticality Noted Date Comments Sulfa Drugs Swelling 08/01/2014 Medications * Be aware that medications may not be up to date on this document. Alwaysverify current medications with the patient. Medication Sig Dispensed Refills Start Date End Date Status lisinopril (PRINIVIL; ZESTRIL) 20 MG tablet Take 20 mg by mouth once daily. Active ezetimibe (ZETIA) 10 MG tablet Take 10 mg by mouth once daily. Active tetrahydrozoline (VISINE) 0.05 % ophthalmic solution Instill 1 Drop into both eyes as needed for Itchy Eyes Active labetalol (NORMODYNE; TRANDATE) 100 MG tablet Take 0.5 Tabs by mouth 2 times daily 30 Tab 1 07/07/2016 Active Additional Information Patient taking differently: 200 mgOral 2 TIMES DAILY, Reported on 01/14/2017 Cetirizine HCl (ZYRTEC ALLERGY PO) Activ e Loperamide-Simethic one (IMODIUM ADVANCED PO) Active senna-docusate (SENOKOT-S) 8.6-50 MG tablet Take 1 Tab by mouth 2 times daily 02/01/2017 Active HYDROcodone-acetami nophen (NORCO) 10-325 MG tablet Take 0.5-1 Tabs by mouth every 6 hours as needed for Pain 90 Tab 02/01/2017 Active HYDROcodone-acetami nophen (NORCO) 7.5-325 MG tabletIndications:S tatus post right knee replacement Take 1 tablet by mouth every 8 hours as needed for Pain 60 tablet 02/20/2017 Active Active Problems Problem Noted Date Diagnosed [...] Mass Index 42.43 01/30/2017 6:01 AM CDT Plan of Treatment Health Maintenance Due Date Last Done Comments BONE DENSITY TESTING 1944 DTAP/TDAP/TD VACCINES (1 - Tdap) 08/18/1963 PNEUMOCOCCAL VACCINE 50+ (1 of 1 - PCV) 1994 ZOSTER VACCINE (1 of 2) 1994 Respiratory Syncytial Virus (RSV) Vaccine Pt: or over 60 yrs (1 - 1-dose 75+ series) 08/18/2019 COVID-19 VACCINE (2023- season) 2024 INFLUENZA VACCINE (#1) 2024 8, 03/22/2017, 01/16/2016, Additional history exists DEPRESSION SCREENING 05/12/2024 MEDICARE AWV CALENDAR YEAR 2024 HEPATITIS B VACCINE Aged Out No longe r eligible based on patient's age to complete this topic HIB VACCINE Aged Out No longer eligi ble based on patient's age to complete this topic HPV VACCINE Aged Out No longer eligi ble based on patient's age to complete this topic MENINGOCOCCAL (Group B) VACCINE Aged Out No longer eligible based on patient's age to complete this topic MENINGOCOCCAL VACCINE Aged Out No conchita terrence eligible based on patient's age to complete this topic Medical Devices Implanted Type Area Healthcare Sales Representative Device Identifier Shelf Expiration Date Model / Serial / Lot Acetabular Cup Implanted:Qty: 1 on 09/13/2014 by Oziel Del Rosario IV, MD at [facility] Right: Hip [employer] 10/11/2023 [id number] / / [id number] Acetabular Liner Implanted:Qty: 1 on 09/13/2014 by Oziel Del Rosario IV, MD at [facility] Right: Hip [employer] 06/12/2019 [id number] / / [id number] Scrw Selftap Lo Prof Ti 6.5 X 35mm Implanted:Qty: 1 on 09/13/2014 by Oziel Del Rosario IV, MD at [facility] Right: Hip [employer] 07/10/2024 [id number] / / [id number] High Offset Femoral Stem Implanted:Qty: 1 on 09/13/2014 by Oziel Del Rosario IV, MD at [facility] Right: Hip [employer] 02/10/2024 [id number] / / [id number] Ceramic Head Implanted:Qty: 1 on 09/13/2014 by Oziel Del Rosario IV, MD at [facility] Right: Hip [employer] 08/10/2024 650-1057 / / [id number] Taper Adapter Implanted:Qty: 1 on 09/13/2014 by Oziel Del Rosario IV, MD at [facility] Right: Hip [employer] 06/12/2024 650-1064 / / [id number] Biomet Acetabular Liner, 36mm Implanted:Qty: 1 on 01/24/2015 by Oziel Del Rosario IV, MD at [facility] Left: Hip 11/15/2019 [id number] / / [id number] Bi[employer] Ceramic Head, 36mm Implanted:Qty: 1 on 01/24/2015 by Oziel Del Rosario IV, MD at [facility] Left: Hip 12/08/2024 650-1057 / / [id number] Biomet, Reduced Distal High Offset Femoral Stem, 11 X 107 Implanted:Qty: 1 on 01/24/2015 by Oziel Del Rosario IV, MD at [facility] Left: Hip 07/09/2024 [id number] / / [id number] Biomet Taper Adapter, Minus 3mm Implanted:Qty: 1 on 01/24/2015 by Oziel Del Rosario IV, MD at [facility] Left: Hip 01/05/2025 650-1065 / / [id number] Biomet Acetabular Shell, 52mm Implanted:Qty: 1 on 01/24/2015 by Oziel Del Rosario IV, MD at [facility] Left: Hip 12/13/2024 PT-720739 / / [id number] Gautam Bone [place]-G Hv 40/20 Implanted:Qty: 1 on 07/04/2016 by Parveen Pandey MD at [facility] Left: Knee [employer] [id number] 10/09/2017 774254 / / [id number] 28mm X 8mm Standard Patella Implanted:Qty: 1 on 07/04/2016 by Parveen Pandey MD at [facility] Left: Knee [employer] 06/03/2018 [id number] / / Cmpnt Fem Kn Lt Cr Cmnt Prm Vngrd Intlk Implanted:Qty: 1 on 07/04/2016 by Parveen Pandey MD at [facility] Left: Knee [employer] [id number] 05/09/2026 771744 / / [id number] Tray Tib 71mm Kn Cocr I Beam Implanted:Qty: 1 on 07/04/2016 by Parveen Pandey MD at [facility] Left: Knee [employer] [id number] 05/17/2026 721123 / / [id number] Brng 90aeh98xi Vngrd Arcm Kn Ant Stab Implanted:Qty: 1 on 07/04/2016 by Parveen Pandey MD at [facility] Left: Knee [employer] [id number] 09/10/2020 983512 / / [id number] Gautam Bone [place]-G Hv 40/20 Implanted:Qty: 1 on 01/30/2017 by Parveen Pandey MD at [facility] Left: Knee [employer] 09/08/2017 600-15-100 / / [id number] Tray Tib 75mm Kn Cocr I Beam Implanted:Qty: 1 on 01/30/2017 by Parveen Pandey MD at [facility] Left: Knee Migdalia [employer] 05/21/2026 777575 / / [id number] Cmpnt Fem Kn Rt Cr Cmnt Prm Vngrd Intlk 65mm Implanted:Qty: 1 on 01/30/2017 by Parveen Pandey MD at [facility] Left: Knee [employer] 10/20/2026 262359 / / [id number] Cmpnt Ptlr 28mm 1 Pg Wire Ascnt Arcm Kn Implanted:Qty: 1 on 01/30/2017 by Parveen Pandey MD at [facility] Left: Knee [employer] 11/27/2021 11-867026 / / [id number] Brng 26ity98ta Vngrd Arcm Kn Ant Stab Implanted:Qty: 1 on 01/30/2017 by Parveen Pandey MD at [facility] Left: Knee [employer] 01/16/2022 [id number] / / [id number] Explanted Type Area Healthcare Sales Representative Device Identifier Shelf Expiration Date Model / Serial / Lot Ceramic Head Implanted:Qty: 1 Explanted:Qty: 1 on 09/13/2014 at [facility] Right: Hip [employer] 08/10/2024 1144-5382 / / [id number] Taper Adapter Explanted:Qty: 1 on 09/13/2014 at [facility] Right: Hip [employer] 02/10/2024 650-1065 / / [id number] Advance Directives * Full Code (Latest Code Status on File) Date Activated Date Inactivated Comments 01/30/2017 10:13 AM 02/02/2017 3:13 PM * Full Code Date Activated Date Inactivated Comments 07/04/2016 10:47 AM 07/07/2016 2:33 PM * Full Code Date Activated Date Inactivated Comments 01/24/2015 12:10 PM 01/27/2015 3:38 PM * Full Code Date Activated Date Inactivated Comments 09/13/2014 10:04 AM 09/16/2014 3:02 PM Care Teams Nursery Supervisor Relationship Specialty Start Date End Date Rajan Rodriguez MD [address] [facility] [address] [place] [facility] [address] [place] [address] PCP - General Internal Medicine 08/01/14 [place] [address] [address] [place] [address] Orthopedic Surgery 08/01/14
--- OUTSIDE RECORDS SUMMARY | 2024-07-15 16:25 | XMS_ITS | Encounter Summary ---
Author Organization [facility] Address [address] [place] [address] Care Team Providers Care Operations Director Name Role Phone Miguel Ángel FONTENOT MD, Oziel Unavailable [phone] Rajan Rodriguez MD Primary Care Provider [phone] Encounter Details Date Type Department Care Team (Late st Contact Info) Description 02/23/2015 Therapy Visit [facility] Orthopedics [address] [facility] [address] [place] [address] [place] [address] [address] Social History Tobacco Use Types [...] on filedocumented in this encounter Care Teams Operations Director Relationship Specialty Start Date End Date Rajan Rodriguez MD [address] [facility] [address] [facility] [address] [place] [address] PCP - General Internal Medicine 08/01/14 [place] [address] [address] [facility] [address] [place] [address] Orthopedic Surgery 08/01/14 documented as of this encounter
--- OUTSIDE RECORDS SUMMARY | 2024-07-15 16:25 | XMS_ITS | Encounter Summary ---
Author Organization [facility] Address [address] [place] [address] Care Team Providers Care Director Business Development Name Role Phone Miguel Ángel FONTENOT MD, Oziel Unavailable [phone] Rajan Rodriguez MD Primary Care Provider [phone] Encounter Details Date Type Department Care Team (Late st Contact Info) Description 01/06/2015 [facility] Outpatient Visit [facility] Orthopedics - Radiology [address] [place] [address] [place] [address] [address] [facility] [address] [place] [address] Social History Tobacco Use Types Packs/Day [...] or have serious hearing difficult y? No 09/13/2014 Is person blind or have serious difficulty seein g? No 09/13/2014 Does person have serious dif ficulty walking/climbing stairs? No 09/13/2014 Does person have difficulty dressing/bathing? No 09/13/2014 Does person have difficulty doing errands alone? No 09/13/2014 Cognitive Status Response Date of Assessm ent Does person have difficulty concentrating/remembering/making decisions? No 09/13/2014 documented as of this encounter Plan of Treatment Not on file documented as of this encounter Visit Diagnoses Not on filedocumented in this encounter Care Teams Director Business Development Relationship Specialty Start Date End Date Rajan Rodriguez MD [address] [facility] [address] [place] [facility] [address] [place] [address] PCP - General Internal Medicine 08/01/14 [place] [address] [address] [facility] [address] [place] [address] Orthopedic Surgery 08/01/14 documented as of this encounter
--- OUTSIDE RECORDS SUMMARY | 2024-07-15 16:25 | XMS_ITS | Referral Summary ---
Author Organization [facility] Address [address] [facility] [place] [address] Care Team Providers Care Field Investigator Name Role Phone Miguel Ángel FONTENOT MD, Oziel Unavailable [phone] Rajan Rodriguez MD Primary Care Provider [phone] Source Comments [facility],non-owned Affiliates and Associated Physician Practices is amultiple site organization consisting of ambulatory clinics and hospital sitesin [place], [place], [place] and [place]. This disclosure is being madepursuant to the Care Everywhere program and may not contain all information available regarding this patient. Last updated 18.[facility] Allergies Active Allergy Reactions Criticality Noted Date [...] Mass Index 42.43 01/30/2017 6:01 AM CDT Functional Status Functional Status Response Date of Assess ment Is person deaf or have serious hearing difficult y? No 01/30/2017 Is person blind or have serious difficulty seein g? No 01/30/2017 Does person have serious dif ficulty walking/climbing stairs? No 01/30/2017 Does person have difficulty dressing/bathing? Ye s 01/30/2017 Does person have difficulty doing errands alone? No 01/30/2017 Cognitive Status Response Date of Assessm ent Does person have difficulty concentrating/remembering/making decisions? No 01/30/2017 Plan of Treatment Not on file Medical Devices Implanted Type Area Milk Tester Device Identifier Shelf Expiration Date Model / Serial / Lot Acetabular Cup Implanted:Qty: 1 on 09/13/2014 by Oziel Del Rosario IV, MD at [facility] Right: Hip [employer] 10/11/2023 PT-521635 / / [id number] Acetabular Liner Implanted:Qty: 1 on 09/13/2014 by Oziel Del Rosario IV, MD at [facility] Right: Hip [employer] 06/12/2019 EP-663083 / / [id number] Scrw Selftap Lo Prof Ti 6.5 X 35mm Implanted:Qty: 1 on 09/13/2014 by Oziel Del Rosario IV, MD at [facility] Right: Hip [employer] 07/10/2024 692041 / / [id number] High Offset Femoral Stem Implanted:Qty: 1 on 09/13/2014 by Oziel Del Rosario IV, MD at [facility] Right: Hip [employer] 02/10/2024 51-871305 / / [id number] Ceramic Head Implanted:Qty: 1 on 09/13/2014 by Oziel Del Rosario IV, MD at [facility] Right: Hip [employer] 08/10/2024 650-1057 / / [id number] Taper Adapter Implanted:Qty: 1 on 09/13/2014 by Oziel Del Rosario IV, MD at [facility] Right: Hip [employer] 06/12/2024 650-1064 / / [id number] Biomet Acetabular Liner, 36mm Implanted:Qty: 1 on 01/24/2015 by Oziel Del Rosario IV, MD at [facility] Left: Hip 11/15/2019 EP-[id number] / / [id number] Bi[employer] Ceramic Head, 36mm Implanted:Qty: 1 on 01/24/2015 by Oziel Del Rosario IV, MD at [facility] Left: Hip 12/08/2024 650-1057 / / [id number] Bi[employer], Reduced Distal High Offset Femoral Stem, 11 X 107 Implanted:Qty: 1 on 01/24/2015 by Oziel Del Rosario IV, MD at [facility] Left: Hip 07/09/2024 51-724266 / / [id number] Biomet Taper Adapter, Minus 3mm Implanted:Qty: 1 on 01/24/2015 by Oziel Del Rosario IV, MD at [facility] Left: Hip 01/05/2025 650-1065 / / [id number] Biomet Acetabular Shell, 52mm Implanted:Qty: 1 on 01/24/2015 by Oziel Del Rosario IV, MD at [facility] Left: Hip 12/13/2024 PT-830809 / / [id number] Gautam Bone [place]-G Hv 40/20 Implanted:Qty: 1 on 07/04/2016 by Parveen Pandey MD at [facility] Left: Knee [employer] [id number] 10/09/2017 549707 / / [id number] 28mm X 8mm Standard Patella Implanted:Qty: 1 on 07/04/2016 by Parveen Pandey MD at [facility] Left: Knee [employer] 06/03/2018 345034 / / Cmpnt Fem Kn Lt Cr Cmnt Prm Vngrd Intlk Implanted:Qty: 1 on 07/04/2016 by Parveen Pandey MD at [facility] Left: Knee [employer] [id number] 05/09/2026 588632 / / [id number] Tray Tib 71mm Kn Cocr I Beam Implanted:Qty: 1 on 07/04/2016 by Parveen Pandey MD at [facility] Left: Knee [employer] [id number] 05/17/2026 047035 / / [id number] Brng 65jxc42sk Vngrd Arcm Kn Ant Stab Implanted:Qty: 1 on 07/04/2016 by Parveen Pandey MD at [facility] Left: Knee [employer] [id number] 09/10/2020 432158 / / [id number] Gautam Bone [place]-G Hv 40/20 Implanted:Qty: 1 on 01/30/2017 by Parveen Pandey MD at [facility] Left: Knee [employer] 09/08/2017 600-15-100 / / [id number] Tray Tib 75mm Kn Cocr I Beam Implanted:Qty: 1 on 01/30/2017 by Parveen Pandey MD at [facility] Left: Knee Migdalia [employer] 05/21/2026 302555 / / [id number] Cmpnt Fem Kn Rt Cr Cmnt Prm Vngrd Intlk 65mm Implanted:Qty: 1 on 01/30/2017 by Parveen Pandey MD at [facility] Left: Knee [employer] 10/20/2026 283900 / / [id number] Cmpnt Ptlr 28mm 1 Pg Wire Ascnt Arcm Kn Implanted:Qty: 1 on 01/30/2017 by Parveen Pandey MD at [facility] Left: Knee [employer] 11/27/2021 11-895132 / / [id number] Brng 33soh76ts Vngrd Arcm Kn Ant Stab Implanted:Qty: 1 on 01/30/2017 by Parveen Pandey MD at [facility] Left: Knee [employer] 01/16/2022 [id number] / / [id number] Explanted Type Area Milk Tester Device Identifier Shelf Expiration Date Model / Serial / Lot Ceramic Head Implanted:Qty: 1 Explanted:Qty: 1 on 09/13/2014 at [facility] Right: Hip [employer] 08/10/2024 7032-6785 / / [id number] Taper Adapter Explanted:Qty: 1 on 09/13/2014 at [facility] Right: Hip [employer] 02/10/2024 650-3270 / / [id number] Advance Directives * Full Code (Latest Code [...] 10:04 AM 09/16/2014 3:02 PM Care Teams Field Investigator Relationship Specialty Start Date End Date Rajan Rodriguez MD [facility] [facility] [address] [place] [facility] [address] [place] [address] PCP - General Internal Medicine 08/01/14 [place] [address] [address] [facility] [address] [place] [address] Orthopedic Surgery 08/01/14
--- OUTSIDE RECORDS SUMMARY | 2024-07-15 16:25 | XMS_ITS | Clinical Summary ---
Author Organization [facility] Address [facility] [place] [address] Care Team Providers Care Senior Risk Analyst Name Role Phone Brandon Suresh MD Primary Care Provider [phone] Allergies Active Allergy Reactions Criticality Noted Date Comments Lisinopril Cough Low 12/16/2018 Sulfa Antibiotics Hives,Swelling Low 08/01/2014 Reaction: Hives, , Medications Magnesium Glycinate 100 MG CapIndications:Per ipheral polyneuropathy Take 400 mg by mouth daily. 4 Active atorvastatin (LIPITOR) 20 MG tabletIndications: Mixed hyperlipidemia Take 1 tablet (20 mg total) by mouth nightly at bedtime. 90 tablet 1 4 Active apixaban (ELIQUIS) 5 MG tabletIndications: Paroxysmal atrial fibrillation ([facility] HHS/HCC) Take 1 tablet (5 mg total) by mouth 2 (two) times daily. 60 tablet 6 4 Active FARXIGA 10 MG tabletIndications: Stage 3b chronic kidney disease ([facility] HHS/HCC) Take 1 tablet (10 mg total) by mouth daily. 30 tablet 5 4 Active vitamin B-12 (CYANOCOBALAMIN) (CYANOCOBALAMIN) 1000 mcg tabletIndications: Vitamin B 12 deficiency Take 1 tablet (1,000 mcg total) by mouth daily. 90 tablet 3 4 Active CPAP DEVICE, DME,Indications:OS A (obstructive sleep apnea) 1 Device by Does not apply route nightly at bedtime. Send to [employer] 1 Device 5 Active multi vitamin/minerals (THERA-M ENHANCED) tablet Take 1 tablet by mouth daily. Active ipratropium (ATROVENT) 0.03 % nasal spray 2 sprays 2 (two) times daily. 5 Active losartan (COZAAR) 100 MG tabletIndications: Primary hypertension Take 1 tablet (100 mg total) by mouth daily. 90 tablet 1 5 Active labetalol (NORMODYNE) 200 MG tabletIndications: Primary hypertension Take 1 tablet (200 mg total) by mouth 2 (two) times daily. 90 tablet 1 5 Active levothyroxine (SYNTHROID) 25 MCG tabletIndications: Hypothyroidism, unspecified type Take 1 tablet (25 mcg total) by mouth every morning. 90 tablet 1 5 Active levothyroxine (SYNTHROID) 25 MCG tabletIndications: Hypothyroidism, unspecified type Take 1 tablet (25 mcg total) by mouth every morning. 90 tablet 4 06/24/19 25 Discontin ued(Reord er) losartan (COZAAR) 100 MG tabletIndications: Primary hypertension Take 1 tablet (100 mg total) by mouth daily. 90 tablet 1 5 06/23/19 25 Discontin ued(Reord er) labetalol (NORMODYNE) 200 MG tabletIndications: Primary hypertension Take 1 tablet (200 mg total) by mouth 2 (two) times daily. 90 tablet 1 5 06/23/19 25 Discontin ued(Reord er) Active Problems Problem Noted Date Diagnosed Date Hyperlipidemia 05/09/2016 Pure hypercholesterolemia 07/11/2015 Overview (04/05/2024): Hyperlipidemia LDL goal <130 Benign hypertension 09/25/2013 Overview (04/05/2024): BENIGN HYPERTENSION Encounters Date Type Department Care Team Description 07/06/2024 [facility]phone [facility] [address] [place] [address] Brandon Suresh MD Mammography Order 07/06/2024 Telephone [facility] [place] [facility] [place] [address] [place] [address] Brandon Suresh MD Orders 06/24/2024 Orders Only [facility] Medical [facility] [place] [facility] [place] [address] [facility] [address] [place] [address] Brandon Suresh MD 06/23/2024 11:40 AM MARKETING SUPPORT ASSISTANT [facility] [place] - [address] [place] [address] Brandon Suresh MD Follow Up; Hypertension; Lump; Hypothyroidism 06/23/2024 - 06/23/2024 11:59 PM MARKETING SUPPORT ASSISTANT Hospital Encounter [facility] [address] Brandon Suresh MD Discharge Disposition: Home or Self Care (Routine Discharge) 06/23/2024 Telephone [facility] [place] - [address] [place] [address] Brandon Suresh MD Orders 06/23/2024 Telephone [facility], [address] [address] Michelle Mcneil PA-C Concerns 06/23/2024 Travel 06/15/2024 12:38 PM MARKETING SUPPORT ASSISTANT Anesthesia Event [facility] [address] Bal Jones MD 06/15/2024 11:06 AM MARKETING SUPPORT ASSISTANT - 06/15/2024 4:30 PM MARKETING SUPPORT ASSISTANT Hospital Encounter [facility] [address] Miguel Bentley MD Siddiqui, Ata U., MD Discharge Disposition: Home or Self Care (Routine Discharge) 06/15/2024 11:00 AM MARKETING SUPPORT ASSISTANT - 06/15/2024 11:05 AM MARKETING SUPPORT ASSISTANT Hospital Encounter [facility] [address] Miguel Bentley MD Discharge Disposition: Home or Self Care (Routine Discharge) 06/15/2024 Travel 06/14/2024 Scan [facility] Scanned, [facility] 06/10/[address] [place] [address] Brandon Suresh MD Lab Results 06/07/2024 2:59 PM MARKETING SUPPORT ASSISTANT - 06/07/2024 11:59 PM MARKETING SUPPORT ASSISTANT Hospital Encounter [facility] [place] [address] Brandon Suresh MD Discharge Disposition: Home or Self Care (Routine Discharge) 06/07/2024 Travel 05/27/2024 Scan [facility] Scanned[facility] 05/25/2024 3:40 PM MARKETING SUPPORT ASSISTANT Office Visit [address] [place] [address] Brandon Suresh MD Follow Up (/); Atrial Fibrillation (/); Hypertension; Sleep Problem 05/25/2024 Travel 05/19/2024 Orders Only [facility], [address] [address] Miguel Bentley MD 05/19/2024 Telephone [facility], [address] [address] Michelle Mcneil PA-C Results 05/13/2024 12:57 PM MARKETING SUPPORT ASSISTANT - 05/13/2024 11:59 PM MARKETING SUPPORT ASSISTANT Hospital Encounter [facility] [address] [place] [address] Miguel Bentley MD Snoring; Atrial Flutter Discharge Disposition: Home or Self Care (Routine Discharge) 05/13/2024 Travel 05/03/2024 Telephone [place] [address] [address] [facility] [address] [place] [address] Brandon Suresh MD Medication 05/03/2024 Telephone [place] [address] [address] [facility] [address] [place] [address] Brandon Suresh MD Returned Call 04/30/2024 Orders Only [place] [address] [address] [facility] [address] [place] [address] Adelia Velarde MA 04/29/2024 9:00 AM MARKETING SUPPORT ASSISTANT Allied Health/Nurse Visit [place] [address] [address] [facility] [address] [place] [address] Brandon Suresh MD Allied Health Visit (Pt is here for lab work) 04/29/2024 - 04/29/2024 11:59 PM MARKETING SUPPORT ASSISTANT Hospital Encounter [facility] [address] [place] [address] Brandon Suresh MD Discharge Disposition: Home or Self Care (Routine Discharge) 04/29/2024 Telephone [place] [address] [address] [facility] [address] [place] [address] Brandon Suresh MD Lab Order 04/29/2024 Travel from Last 3 Months Immunizations Name Administration Dates Next Due Fluzone High Dose (IIV, triv alent, 0.5mL) 02/13/2024,02/26/2019,02/24/2018,2016,01/16/2016,03/13/2015 Fluzone High Dose - >Age 65 (Prefilled Syringe) 02/13/2023,04/12/2022,02/04/2020 Influenza (Generic) 04/11/2022,,02/25/2018,2016,02/09/2014,03/12/2013,03/03/2013,1 ,02/25/2011,03/09/2010,10/21/2 008 Influenza Adult (Generic) 02/26/2021 MODERNA COVID-19 (12+) MRNA, LNP-S, PF, 100 MCG/ 0.5 ML DOSE 03/28/2021,07/14/2020 Pneumococcal (Pneumovax 23) 12/01/2008 Pneumococcal (Prevnar 13) 03/13/2015 Pneumococcal (Prevnar 20) 03/23/2024 Td (TDVAX) 08/10/2007 Zoster (Zostavax) [address] Unt/0.65Ml 08/10/2007 Social History Tobacco Use Types Packs/Day Years Used Date Smoking Tobacco: Never Smokeless Tobacco: Never Tobacco Cessation:Counseling Given: Yes Comments:Counseled by Dr. Suresh. Alcohol Use Standard Drinks/Week Comments Never 0 (1 standard drink = 0.6 oz pur e alcohol) AUDIT-C Answer Date Recorded Q1: How often do you have a drink containing alcohol? Never 03/23/2024 Q2: How many drinks containi ng alcohol do you have on a typical day when you are drinking? Patient does not drink Q3: How often do you have si x or more drinks on one occasion? Never 03/23/2024 PHQ-2 Answer Date Recorded Patient Health Questionnaire-2 Score 0 06/23/2024 Comments No Sex and Gender Information Value Date Recorded Sex Assigned at Female 05/25/2024 11:01 AM MARKETING SUPPORT ASSISTANT Legal Sex Female 2:00 PM CDT Gender Identity Female 06/23/2024 11:47 AM MARKETING SUPPORT ASSISTANT Sexual Orientation Straight 06/23/2024 11 :47 AM MARKETING SUPPORT ASSISTANT Last Filed Vital Signs Vital Sign Reading Time Taken Comments Blood Pressure 131/66 06/23/2024 11:45 AM MARKETING SUPPORT ASSISTANT Pulse 63 06/23/2024 11:45 AM MARKETING SUPPORT ASSISTANT Temperature 36.1 C (97 F) 06/23/2024 11:45 AM MARKETING SUPPORT ASSISTANT Respiratory Rate 18 06/23/2024 11:45 AM MARKETING SUPPORT ASSISTANT Oxygen Saturation 99% 06/23/2024 11:45 AM MARKETING SUPPORT ASSISTANT Inhaled Oxygen Concentration - - Weight 114 kg (251 lb 6.4 oz) 06/23/2024 11:45 A M MARKETING SUPPORT ASSISTANT Height 163.8 cm (5' 4.5 ) 06/23/2024 11:45 AM CS T Body Mass Index 42.49 06/23/2024 11:45 AM MARKETING SUPPORT ASSISTANT Plan of Treatment Upcoming Encounters Date Type Department Care Team (Late st Contact Info) Description 07/19/2024 1:15 PM CDT Office Visit [facility], [place] [address] [place] [address] Michelle Mcneil PA-C [facility] [place] [address] [place] [address] 09/22/2024 1:20 PM CDT Office Visit [facility] - [address] [place] [address] Andres Morgan MD [address] [facility] [place] [address] [place] [address] 10/18/2024 11:20 AM CDT Office Visit [facility] Mult[facility]ialty Care - [place] [address] [address] [place] [address] Brandon Suresh MD [address] [facility] [address] [place] [address] Health Maintenance Due Date Last Done Comments DTaP, Tdap and Td Vaccines (1 - Tdap) 08/11/2007 08/10/2007 Zoster Vaccines (2 of 3) 10/05/2007 08/10/2007 Annual Medicare Wellness Visit 2009 Dexa Scan (General) 2009 RSV Immunization or 60+ Years (1 - 1-dose 75+ series) 08/18/2019 COVID-19 Vaccine ( season) 2024 03/20/2023, 04/12/2022, 09/11/2021, Additional history exists Influenza Adult Completed 02/13/2024, 09/2022, 04/12/2022, Additional history exists Pneumococcal Vaccine: 65+ Years Completed 03/23/2024, 03/13/2015, 12/01/2008 Hepatitis C Completed 03/30/2024 PHQ-2 (Physician [place]anger) Completed 06/23/2024 Meningococcal B Vaccine Aged Out No l onger eligible based on patient's age to complete this topic Meningococcal Vaccine Aged Out No conchita terrence eligible based on patient's age to complete this topic RSV Immunizations Under 20 Months Aged Out No longer eligible based on patient's age to complete this topic Procedures Procedure Name Priority Date/Time Associated Diagnosis Comments THYROID STIM HORMONE TSH Routine 06/23/2024 12:27 PM MARKETING SUPPORT ASSISTANT Hypothyroidism, unspecified type THYROXINE, FREE (FT4) Routine 06/23/2024 12:27 PM MARKETING SUPPORT ASSISTANT Hypothyroidism, unspecified type FREE T3 Routine 06/23/2024 12:27 PM MARKETING SUPPORT ASSISTANT Hypothyroidism, unspecified type XA AFLUTTER ABLATION Routine 06/15/2024 2:01 PM MARKETING SUPPORT ASSISTANT Typical atrial flutter (CMS/HCC HHS/HCC) ECG 12-LEAD STAT 06/15/2024 1:37 PM MARKETING SUPPORT ASSISTANT TYPE & SCREEN STAT 06/15/2024 11:13 AM MARKETING SUPPORT ASSISTANT Typical atrial flutter (CMS/HCC HHS/HCC) PROTHROMBIN TIME, VENOUS STAT 06/15/2024 11:13 AM MARKETING SUPPORT ASSISTANT Typical atrial flutter (CMS/HCC HHS/HCC) CBC W/DIFF AUTOMATED STAT 06/15/2024 11:13 AM MARKETING SUPPORT ASSISTANT Typical atrial flutter (CMS/HCC HHS/HCC) BASIC METABOLIC PANEL STAT 06/15/2024 11:13 AM MARKETING SUPPORT ASSISTANT Typical atrial flutter (CMS/HCC HHS/HCC) USE ECHOCARDIOGRAM Routine 06/07/2024 3: 54 PM MARKETING SUPPORT ASSISTANT Primary hypertension COLLECTION VENOUS BLOOD VENIPUNCTURE Routine 05/25/2024 5:03 PM MARKETING SUPPORT ASSISTANT Hypothyroidism, unspecified type HOME SLEEP STUDY - WATCHPAT Routine 05/13/2024 1:00 PM MARKETING SUPPORT ASSISTANT Snoring Typical atrial flutter (CMS/HCC HHS/HCC) THYROID PEROXIDASE ANTIBODY Routine 04/29/2024 9:04 AM MARKETING SUPPORT ASSISTANT Hypothyroidism, unspecified type THYROGLOBULIN, ANTIBODY Routine 04/29/2024 9:04 AM MARKETING SUPPORT ASSISTANT Hypothyroidism, unspecified type THYROID STIM HORMONE TSH Routine 04/29/2024 9:04 AM MARKETING SUPPORT ASSISTANT Screening for hypothyroidism FREE T3 Routine 04/29/2024 9:04 AM MARKETING SUPPORT ASSISTANT Screening for hypothyroidism THYROXINE, FREE (FT4) Routine 04/29/2024 9:04 AM MARKETING SUPPORT ASSISTANT Screening for hypothyroidism COLLECTION VENOUS BLOOD VENIPUNCTURE Routine 04/29/2024 8:59 AM MARKETING SUPPORT ASSISTANT Screening for hypothyroidism HEPATITIS C ANTIBODY Routine 03/30/2024 8:00 AM MARKETING SUPPORT ASSISTANT Annual physical exam Establishing care with new doctor, encounter for General medical exam Encounter for hepatitis C screening test for low risk patient from Last 3 Months or Most Recently Relevant to Health Maintenance Results * FREE T3 (06/23/2024 12:27 PM MARKETING SUPPORT ASSISTANT) Only the most recent of2 resultswithin the time period is included. FREE T3 3.1 2.2 - 3.9 PG/ML 06/24/2024 5:44 PM MARKETING SUPPORT ASSISTANT [facility] 06/23/2024 12:2 7 PM MARKETING SUPPORT ASSISTANT Brandon Suresh MD LABORATORY Final Result [facility] [address] [place] [address], [id number] * THYROXINE, FREE (FT4) (06/23/2024 12:27 PM MARKETING SUPPORT ASSISTANT) Only the most recent of2 resultswithin the time period is included. FREE T4 1.03 0.76 - 1.46 NG/DL 06/23/2024 7:59 PM MARKETING SUPPORT ASSISTANT [facility] 06/23/2024 12:2 7 PM MARKETING SUPPORT ASSISTANT Brandon Suresh MD LABORATORY Final Result Performing Organization Address [facility] de Phone Number [facility] [address] [place] [address], * THYROID STIM HORMONE TSH (06/23/2024 12:27 PM MARKETING SUPPORT ASSISTANT) Only the most recent of2 resultswithin the time period is included. TSH 2.694 0.358 - 3.740 uIU/ML 06/23/2024 7:59 PM MARKETING SUPPORT ASSISTANT [facility] 06/23/2024 12:2 7 PM MARKETING SUPPORT ASSISTANT Brandon Suresh MD LABORATORY Final Result Performing Organization Address [facility] de Phone Number [place] [address] [place] [address], * XA AFLUTTER ABLATION (06/15/2024 2:01 PM MARKETING SUPPORT ASSISTANT) Anatomical Region Laterality Modality Cardiac Stain Remover Narrative 06/15/2024 3:48 PM MARKETING SUPPORT ASSISTANT [facility] CARDIAC CATHE[facility]ATION/EP LAB [phone] Atrial Flutter Ablation Patient's Name: Pamela Vásquez Date of : 1945 Medical Record: #[id number] Account: #[id number] Physician: Miguel Bentley MD Date: 06/15/2024 Procedure: #[id number] History: 78-year-old female with history of atrial flutter. Here for flutter ablation. Diagnosis: Atrial flutter Presenting rhythm: Normal sinus rhythm Procedure: Sedation was provided by anesthesia services Patient was brought to the room after consent was obtained. Conscious sedation was given in divided doses of Versed and Fentanyl. 3-D mapping was used with the CARTO system. Access was obtained in the right femoral vein (7F, 8F, 9F). All catheters were positioned in the heart using 3D mapping guidance. Vein was accessed with ultrasound and noted to be patent. Images was saved and archived. ICE to RA/RV showed mild tricuspid regurgitation, no pulmonary regurgitation, no aortic regurgitation, no aortic stenosis, no effusion. A decapolar catheter was introduced into the coronary sinus. Ablation was performed in the cavotricuspid isthmus from the ventricular aspect back to the IVC while pacing from the proximal CS. Bidirectional rate independent block was achieved and was durable for a waiting period of 15 minutes. Conclusion: Successful ablation of cavotricuspid isthmus. Recommendation: Bed rest x 2 hours. Resume Apixaban 2 hours after sheath pull Miguel Bentley MD PS/vs Interpreted: 06/15/24 Transcribed: 06/15/24 us Miguel Bentley MD EXECUTIVE VP Final Result * ECG 12 lead (06/15/2024 1:37 PM MARKETING SUPPORT ASSISTANT) 06/15/2024 1:37 PM MARKETING SUPPORT ASSISTANT Narrative [facility] ([facility] RAD - 06/15/2024 11:15 PM MARKETING SUPPORT ASSISTANT [facility] [address] Test Date: 2024-06-15 Pat Name: PAMELA VÁSQUEZ Department: 40 Room: [facility] Gender: Female Consumer Affairs Director: : 1945 Requested By: MIGUEL BENTLEY Order Number: [id number] Reading MD: Johnny Wilson Measurements Intervals [place] Rate: 68 P: 67 DE: 160 QRS: 10 QRSD: 98 T: 40 QT: 421 QTc: 449 Interpretive Statements SINUS RHYTHM POSSIBLE RIGHT ATRIAL ENLARGEMENT [0.25mV P-WAVE] POSSIBLE LEFT ATRIAL ENLARGEMENT [-0.1mV P-WAVE IN V1/V2] POSSIBLE LEFT VENTRICULAR HYPERTROPHY [VOLTAGE CRITERIA PLUS LAE OR QRS WIDENING] Compared to ECG 04/12/2024 09:12:13 Atrial flutter no longer present T-wave abnormality no longer present ETING SUPPORT ASSISTANT Procedure Note Johnny Wilson MD - 06/15/[address] Test Date: 2024-06-15 Pat Name: PAMELA VÁSQUEZ Department: 40 Room: [facility] Gender: Female Consumer Affairs Director: : 1945 Requested By: MIGUEL BENTLEY Order Number: [id number] Reading MD: Johnny Wilson Measurements Intervals [place] Rate: 68 P: 67 DE: 160 QRS: 10 QRSD: 98 T: 40 QT: 421 QTc: 449 Interpretive Statements SINUS RHYTHM POSSIBLE RIGHT ATRIAL ENLARGEMENT [0.25mV P-WAVE] POSSIBLE LEFT ATRIAL ENLARGEMENT [-0.1mV P-WAVE IN V1/V2] POSSIBLE LEFT VENTRICULAR HYPERTROPHY [VOLTAGE CRITERIA PLUS LAE OR QRS WIDENING] Compared to ECG 04/12/2024 09:12:13 Atrial flutter no longer present T-wave abnormality no longer present ETING SUPPORT ASSISTANT us Miguel Bentley MD ECG ORDERABLES Final Result [facility] RAD * TYPE & SCREEN (06/15/2024 11:13 AM MARKETING SUPPORT ASSISTANT) ABO/RH O POSITIVE 06/15/2024 12:30 PM MARKETING SUPPORT ASSISTANT [facility] ANTIBODY SCREEN NEGATIVE 06/15/2024 12:30 PM MARKETING SUPPORT ASSISTANT [facility] SAMPLE EXPIRATION 06/18/2024,2 359 06/15/2024 12:30 PM MARKETING SUPPORT ASSISTANT [facility] 06/15/2024 11:1 3 AM MARKETING SUPPORT ASSISTANT us Miguel Bentley MD BLOOD BANK TEST ORDERABLES Final Result [facility] [address] [place] [address], [place] [phone] * (ABNORMAL) PROTIME/INR, VENOUS (06/15/2024 11:13 AM MARKETING SUPPORT ASSISTANT) Pathologist [facility] PROTIME 13.8(H) 10.2 - 12.9 SEC 06/15/2024 11:39 AM MARKETING SUPPORT ASSISTANT [facility] INR 1.2 06/15/2024 11:39 AM [facility] Comment: Recommended INR Therapeutic Goals: 2.0-3.0 Routine Therapy 2.5-3.5 Mechanical Prosthetic Valves (High Risk) 06/15/2024 11:1 3 AM MARKETING SUPPORT ASSISTANT Miguel Bentley MD LABORATORY Final Result [facility] [address] [place] [address], * (ABNORMAL) BASIC METABOLIC PANEL (06/15/2024 11:13 AM MARKETING SUPPORT ASSISTANT) [facility] GLUCOSE 98 70 - 99 MG/DL 06/15/2024 11:40 AM [facility] BUN 18 7 - 18 MG/DL 06/15/2024 11:40 AM [facility] CREATININE S/P/B 1.48(H) 0.55 - 1.02 MG/DL 06/15/2024 11:40 AM [facility] SODIUM S/P/B 140 136 - 145 MMOL/L 06/15/2024 11:40 AM [facility] POTASSIUM S/P/B 4.5 3.5 - 5.1 MMOL/L 06/15/2024 11:40 AM [facility] CHLORIDE S/P/B 111 97 - 115 MMOL/L 06/15/2024 11:40 AM [facility] CO2 27.0 21 - 32 MMOL/L 06/15/2024 11:40 AM [facility] CALCIUM S/P/B 9.4 8.5 - 10.1 MG/DL 06/15/2024 11:40 AM [facility] ANION GAP 2.0 2 - 10 MMOL/L 06/15/2024 11:40 AM [facility] BUN CREATININE RATIO 12.2 6 - 26 06/15/2024 11:40 AM [facility] GFR ESTIMATE 36(L) >90 ML/MIN/1.7 3 M2 06/15/2024 11:40 AM [facility] Comment: NOTE: eGFR is not calculated for patients <18 years of age or gender unknown. This is an estimated GFR calculation using the new CKD EPI creatinine equation without race and so does not require a correction factor for race. This estimated GFR should not be used for calculating drug doses. 06/15/2024 11:1 3 AM MARKETING SUPPORT ASSISTANT us Miguel Bentley MD LABORATORY Final Result [facility] [address] [place] [address], [place] [phone] * (ABNORMAL) CBC W/DIFF AUTOMATED (06/15/2024 11:13 AM MARKETING SUPPORT ASSISTANT) WBC 7.68 4.5 - 11.0 x10'3/uL 06/15/2024 11:23 AM [facility] RBC 4.25 4.20 - 5.40 x10'6/uL 06/15/2024 11:23 AM [facility] HGB 12.0 12.0 - 16.0 G/DL 06/15/2024 11:23 AM [facility] HCT 38.8 38.0 - 48.0 % 06/15/2024 11:23 AM [facility] MCV 91.3 81.0 - 99.0 FL 06/15/2024 11:23 AM [facility] MCH 28.2 27.0 - 31.0 PG 06/15/2024 11:23 AM [facility] MCHC 30.9(L) 32.0 - 36.0 G/DL 06/15/2024 11:23 AM [facility] RDW 12.2 11.5 - 14.5 % 06/15/2024 11:23 AM [facility] PLT 162 130 - 400 x10'3/uL 06/15/2024 11:23 AM [facility] MPV 11.0 9.3 - 12.2 FL 06/15/2024 11:23 AM [facility] DIFFERENTIAL TYPE AUTOMATED DIFFERENTIAL 06/15/2024 11:23 AM [facility] NEUTROPHILS % 63.2 % 06/15/2024 11:23 AM [facility] LYMPHOCYTES % 24.9 % 06/15/2024 11:23 AM [facility] MONOCYTES % 8.5 % 06/15/2024 11:23 AM [facility] EOSINOPHILS 2.5 % 06/15/2024 11:23 AM [facility] BASOPHILS 0.5 % 06/15/2024 11:23 AM [facility] IMMATURE GRANS % 0.4 % 06/15/19 11:23 AM [facility] ABS. NEUTROPHILS 4.86 1.80 - 7.70 x10'3/uL 06/15/2024 11:23 AM [facility] ABS. LYMPHOCYTES 1.91 1.00 - 4.80 x10'3/uL 06/15/2024 11:23 AM MARKETING SUPPORT ASSISTANT [facility] ABS. MONOCYTES 0.65 0.24 - 0.86 x10'3/uL 06/15/2024 11:23 AM MARKETING SUPPORT ASSISTANT [facility] ABS. EOSINOPHILS 0.19 0.04 - 0.36 x10'3/uL 06/15/2024 11:23 AM MARKETING SUPPORT ASSISTANT [facility] ABS. BASOPHILS 0.04 0.01 - 0.08 x10'3/uL 06/15/2024 11:23 AM MARKETING SUPPORT ASSISTANT [facility] ABS. IMMATURE GRANULOCYTES 0.03 0.00 - 0.49 x10'3/uL 06/15/2024 11:23 AM MARKETING SUPPORT ASSISTANT [facility] 06/15/2024 11:1 3 AM MARKETING SUPPORT ASSISTANT Miguel Bentley MD LABORATORY Final Result [facility] [address] [place] [address], * USE ECHOCARDIOGRAM (06/07/2024 3:54 PM MARKETING SUPPORT ASSISTANT) Anatomical Region Laterality Modality Cardiac Echocardiogram 06/07/2024 3:11 PM MARKETING SUPPORT ASSISTANT Narrative 06/08/2024 4:47 PM MARKETING SUPPORT ASSISTANT Echocardiography Report Pat.Name: PAMELA VÁSQUEZ Pat.ID: [id number] .Date: 06/07/2024 Adrian.: [id number] DAKOTA CARBAJAL EWDPROV EWDPROV Exam Time: 3:11:00 PM Study Type:ECHO WITH CARDIAC DOPPLER COMP Height: 64 in Weight: 280 lb BSA: 2.26 m2 Age: 4 1945,78Y Sex: F BP: 168/82 HR: 72 bpm Sonogrphr: Maira Maradiaga Pat. Stat.:Outpatient Reason for Study:Hypertension Procedures: 2D, M-mode, Doppler, Color Flow, The study quality is technically adequate. Race: B ++++++++++++++++++++++++++++++++++++ SUMMARY: ++++++++++++++++++++++++++++++++++++ The left ventricular size is normal. The left ventricular systolic function is normal. Estimated left ventricular ejection fraction is 60-65%. Moderate concentric left ventricular hypertrophy. Left ventricular diastolic function is abnormal. Wall motion appears normal in all segments. The right ventricular size is normal. Right ventricular systolic function is normal. No significant valvular abnormalities. ++++++++++++++++++++++++++++++++++++ FINDINGS: ++++++++++++++++++++++++++++++++++++ LV: The left ventricular size is normal. The left ventricular systolic function is normal. Estimated left ventricular ejection fraction is 60-65%. Moderate concentric left ventricular hypertrophy. Left ventricular diastolic function is abnormal. WM: Wall motion appears normal in all segments. RV: The right ventricular size is normal. Right ventricular systolic function is normal. Right ventricular systolic pressure is 51 mmHg suggestive of moderate pulmonary hypertension. IVS: No evidence of ventricular septal defect. LA: The left atrial size is severely enlarged. The left atrial volume is severely increased (>48 ml/M2). RA: Right atrial size is normal. IAS: Atrial septum appears intact. MO: No evidence of pericardial effusion. AO: Aorta is normal. PA: Estimated right atrial pressure of 8 mmHg. SVn: Inferior vena cava is mildly enlarged. AV: The aortic valve is trileaflet. No evidence of aortic valve stenosis. No evidence of aortic valve regurgitation. MV: Mild mitral regurgitation. No evidence of mitral stenosis. PV: Trace pulmonic regurgitation. No evidence of pulmonic valve stenosis. TV: Mild tricuspid regurgitation. No evidence of tricuspid valve stenosis. ++++++++++++++++++++++++++++++++++++ MEASUREMENTS: ++++++++++++++++++++++++++++++++++++ DOPPLER LVOT LVOTpkPG 7 mmHg LVOTmnPG 4 mmHg LVOTpkVel 135 cm/s (70-110)+* LVOT SV 97 ml LVOT TVI 30.9 cm AV Forward Flow AV TVI 46.1 cm AV pkPG 16 mmHg AV pkVel 199 cm/s (100-170)+* Area (TVI) 2.1 cm2 (3-5)* AV mnPG 9 mmHg Area (Jad) 2.13 cm2 (3-5)* MV Forward Flow MV DeTm 74 msec MV pkE 103 cm/s (60-130) Mitral Valve MV E/A 0.97 MV E/A Ratio MV pkA 106 cm/s PV Forward Flow PV pkVel 160 cm/s (60-90)* PV AC 114 msec PV pkPG 10 mmHg TV Regurg Flow TV pkPG 43 mmHg TV pkVel 329 cm/s (30-70)* Lat E' Lat e 10.2 cm/s Lat E/E' Lat E/e 10.5 Med E' Med e 12.7 cm/s Med E/E' Med E/e 8.4 Aortic Valve Aortic Valve Ar 0.93 Aortic Valve Ve 0.68 PV Antegrade Flow Acceleration Sl 945 cm/s2 Right Atrium [place]'s Disk 20 Right Ventricle Right Ventricle 16.3 cm/s 2D Left Ventricle LVIDd 4.6 cm (3.6-5.2) LV ESV 22.6 ml LVIDs 2.7 cm (2.3-3.9) LV ESV 20.8 ml LngAxd 7.2 cm LVESV BP 21.7 ml LngAxd 7.04 cm LV EF 68.7 % LV EDV 72.3 ml LV EF 72.6 % LV EDV 75.8 ml LV EF BP 71 % LVEDV BP 74.7 ml LV SV 49.7 ml LngAxs 5.73 cm LV SV 55 ml LngAxs 5.5 cm LV SV BP 53 ml LVPW LVPWd 1.3 cm Ventricular Septum IVSd 1.3 cm Left Atrium LA a-p 4.9 cm (2.8-3.4)* LA VOLBP 104 ml Aorta Ao Rtd 3 cm Ao Asc 3.3 cm (2.1-3.4) LVOT LVOT 2 cm LVOTArea 3.14 cm2 Ratios IVS LA Biplane LAVol I BP 46 ml/m2 RA Single Plane Right Atrium MO 13.4 mm Right Atrium Sy 38.7 ml Right Atrium Sy 63.1 mm Right Atrium Sy 17.1 ml/m2 Right Atrium Sy 17.1 cm2 Right Ventricle Right Ventricle 35 mm Right Ventricle 28 mm Major [place] 75 mm MMODE TA Tricuspid Annul 28.3 mm <Electronic Signature> 06/08/2024 04:47 PM Abiel Mendosa M.D. Procedure Note Abiel Mendosa MD - 06/08/2024 Echocardiography Report Pat.Name: PAMELA VÁSQUEZ Pat.ID: [id number] .Date: 06/07/2024 Refer.MD: [id number] NAATE NUEKI EWDPROV EWDPROV Exam Time: 3:11:00 PM Study Type:ECHO WITH CARDIAC DOPPLER COMP Height: 64 in Weight: 280 lb BSA: 2.26 m2 Age: 4 1945,78Y Sex: F BP: 168/82 HR: 72 bpm Sonogrphr: Maira Maradiaga Pat. Stat.:Outpatient Reason for Study:Hypertension Procedures: 2D, M-mode, Doppler, Color Flow, The study quality is technically adequate. Race: B ++++++++++++++++++++++++++++++++++++ SUMMARY: ++++++++++++++++++++++++++++++++++++ The left ventricular size is normal. The left ventricular systolic function is normal. Estimated left ventricular ejection fraction is 60-65%. Moderate concentric left ventricular hypertrophy. Left ventricular diastolic function is abnormal. Wall motion appears normal in all segments. The right ventricular size is normal. Right ventricular systolic function is normal. No significant valvular abnormalities. ++++++++++++++++++++++++++++++++++++ FINDINGS: ++++++++++++++++++++++++++++++++++++ LV: The left ventricular size is normal. The left ventricular systolic function is normal. Estimated left ventricular ejection fraction is 60-65%. Moderate concentric left ventricular hypertrophy. Left ventricular diastolic function is abnormal. WM: Wall motion appears normal in all segments. RV: The right ventricular size is normal. Right ventricular systolic function is normal. Right ventricular systolic pressure is 51 mmHg suggestive of moderate pulmonary hypertension. IVS: No evidence of ventricular septal defect. LA: The left atrial size is severely enlarged. The left atrial volume is severely increased (>48 ml/M2). RA: Right atrial size is normal. IAS: Atrial septum appears intact. MO: No evidence of pericardial effusion. AO: Aorta is normal. PA: Estimated right atrial pressure of 8 mmHg. SVn: Inferior vena cava is mildly enlarged. AV: The aortic valve is trileaflet. No evidence of aortic valve stenosis. No evidence of aortic valve regurgitation. MV: Mild mitral regurgitation. No evidence of mitral stenosis. PV: Trace pulmonic regurgitation. No evidence of pulmonic valve stenosis. TV: Mild tricuspid regurgitation. No evidence of tricuspid valve stenosis. ++++++++++++++++++++++++++++++++++++ MEASUREMENTS: ++++++++++++++++++++++++++++++++++++ DOPPLER LVOT LVOTpkPG 7 mmHg LVOTmnPG 4 mmHg LVOTpkVel 135 cm/s (70-110)+* LVOT SV 97 ml LVOT TVI 30.9 cm AV Forward Flow AV TVI 46.1 cm AV pkPG 16 mmHg AV pkVel 199 cm/s (100-170)+* Area (TVI) 2.1 cm2 (3-5)* AV mnPG 9 mmHg Area (Jad) 2.13 cm2 (3-5)* MV Forward Flow MV DeTm 74 msec MV pkE 103 cm/s (60-130) Mitral Valve MV E/A 0.97 MV E/A Ratio MV pkA 106 cm/s PV Forward Flow PV pkVel 160 cm/s (60-90)* PV AC 114 msec PV pkPG 10 mmHg TV Regurg Flow TV pkPG 43 mmHg TV pkVel 329 cm/s (30-70)* Lat E' Lat e 10.2 cm/s Lat E/E' Lat E/e 10.5 Med E' Med e 12.7 cm/s Med E/E' Med E/e 8.4 Aortic Valve Aortic Valve Ar 0.93 Aortic Valve Ve 0.68 PV Antegrade Flow Acceleration Sl 945 cm/s2 Right Atrium [place]'s Disk 20 Right Ventricle Right Ventricle 16.3 cm/s 2D Left Ventricle LVIDd 4.6 cm (3.6-5.2) LV ESV 22.6 ml LVIDs 2.7 cm (2.3-3.9) LV ESV 20.8 ml LngAxd 7.2 cm LVESV BP 21.7 ml LngAxd 7.04 cm LV EF 68.7 % LV EDV 72.3 ml LV EF 72.6 % LV EDV 75.8 ml LV EF BP 71 % LVEDV BP 74.7 ml LV SV 49.7 ml LngAxs 5.73 cm LV SV 55 ml LngAxs 5.5 cm LV SV BP 53 ml LVPW LVPWd 1.3 cm Ventricular Septum IVSd 1.3 cm Left Atrium LA a-p 4.9 cm (2.8-3.4)* LA VOLBP 104 ml Aorta Ao Rtd 3 cm Ao Asc 3.3 cm (2.1-3.4) LVOT LVOT 2 cm LVOTArea 3.14 cm2 Ratios IVS LA Biplane LAVol I BP 46 ml/m2 RA Single Plane Right Atrium MO 13.4 mm Right Atrium Sy 38.7 ml Right Atrium Sy 63.1 mm Right Atrium Sy 17.1 ml/m2 Right Atrium Sy 17.1 cm2 Right Ventricle Right Ventricle 35 mm Right Ventricle 28 mm Major [place] 75 mm MMODE TA Tricuspid Annul 28.3 mm <Electronic Signature> 06/08/2024 04:47 PM Abiel Mendosa M.D. Brandon Suresh MD ECHO Final Result * Home Sleep Study - WatchPat ([id number]) (05/13/2024 1:00 PM MARKETING SUPPORT ASSISTANT) Narrative [facility] - 05/13/2024 1:00 PM MARKETING SUPPORT ASSISTANT Arnaud Bean MD 05/17/2024 7:27 PM Patient Information First Name: PAMELA Last Name: THALIA ID: [id number] Date: 1945 Age: 78 Gender: Female BMI: 41.9 (W=251 lb, H=5' 5 Sleep Study Information Study Date:05/14/2024 Referring Physician Information First Name: Last Name: MIGUEL BENTLEY 5.3.82.5 / 4.2.1215 / 82 S/H/A Version: WATCHPAT HOME SLEEP APNEA TEST REPORT SUMMARY DATA SLEEP STUDY/ARCHITECTURE: This patient was studied using a WatchPAT home sleep study device, The evaluation was initiated on 05/14/2024 at 12:48:07 AM and was stopped at 7:57:18 AM. The total recording time was 7 hrs, 9 min with total sleep evaluation of 6 hrs, 18 min. ANALYSIS: (pAHI = PAT Apnea-Hypopnea Index, pRDI = PAT Respiratory Disturbance Index) Total pAHI 4%: 18.0 Total pRDI: 23.5 Average Sleep Oxygen Saturation: 93 Minimum Sleep Oxygen Saturation: 79 Mean Heart Rate During Sleep: 72 Afib Total Duration: 0:45:29 Afib Longest Duration: 0:14:14 (Afib events < 60 seconds may be artifact) Premature Beats per Minute: 6.1 Rev. Printed on:05/18/2024 05/14/2024,[id number],1945,Female *The automatic analysis events or stages have been edited. 539 Page 1 of 2 Sleep Study Report SUMMARY/DIAGNOSIS 1.) Moderate Obstructive Sleep Apnea. 2.) This patient's oxygen saturation was at or below 88.0% for 23.0 minutes during this study. 3.) Premature beats were noted and atrial fibrillation was suspected during this study. RECOMMENDATIONS Crucible treatment option should be discussed with the patient and a plan for treatment should be made. Potential health consequences and medical importance of treatment should also be discussed with the patient. This patient's oxygen saturation was at or below 88.0% for 23.0 minutes during this study. Possible need to do additional testing with full night titration with possible supplemental oxygen addition if there are still significant desaturations when patient's AHI is within normal limits should be considered. Also, premature beats were noted and atrial fibrillation was suspected during this study. The possibility of additional medical evaluation based on noted desaturations and cardiac issues should be considered. This patient should maintain good sleep hygiene techniques, maintain a consistent sleep/wake schedule with adequate hours of sleep, and avoid hazardous activities when sleepy. The patient should be cautioned about factors that may potentially exacerbate snoring and other sleep-related issues, such as [employer] depressants, especially at bedtime. Raw data reviewed and electronically signed by: Arnaud Bean on 05/17/2024 7:24:28 PM at 1:24:33AM, [facility] us Miguel Bentley MD SLEEP CENTER ORDERABLES Final Re sult Performing Organization Address [facility] Co de Phone Number [facility] [address] [place] [address], [place] [phone] * THYROID PEROXIDASE ANTIBODY (04/29/2024 9:04 AM MARKETING SUPPORT ASSISTANT) THYROID PEROXIDASE MICROSOMAL AB 5.7 IU/ML 05/04/2024 11:19 AM MARKETING SUPPORT ASSISTANT [facility] Comment: NEGATIVE: < 25 IU/ML EQUIVOCAL: 25 to 35 IU/ML POSITIVE: > 35 IU/ML 04/29/2024 9:04 AM MARKETING SUPPORT ASSISTANT us Brandon Suresh MD LABORATORY Final Result Performing Organization Address [facility] Co de Phone Number [facility] [address] [place] [address], [place] [phone] * THYROGLOBULIN, ANTIBODY (04/29/2024 9:04 AM MARKETING SUPPORT ASSISTANT) THYROGLOBULIN AB 29 IU/ML 05/04/20 11:19 AM MARKETING SUPPORT ASSISTANT [facility] Comment: NEGATIVE: < 40 IU/ML EQUIVOCAL: 40 to 60 IU/ML POSITIVE: > 60 IU/ML 04/29/2024 9:04 AM MARKETING SUPPORT ASSISTANT us Brandon Suresh MD LABORATORY Final Result Performing Organization Address City/[facility]/ZIP Co de Phone Number [facility] [address] [place] [address], [place] [phone] * HEPATITIS C ANTIBODY (03/30/2024 8:00 AM MARKETING SUPPORT ASSISTANT) HEPATITIS C AB NON-REACTI VE NON-REACT CHOCO 03/30/2024 7:42 PM MARKETING SUPPORT ASSISTANT [facility] Comment: ANTIBODIES TO HCV NOT DETECTED. DOES NOT EXCLUDE THE POSSIBILITY OF EXPOSURE TO HCV. 03/30/2024 8:00 AM MARKETING SUPPORT ASSISTANT Brandon Suresh MD LABORATORY Final Result [facility] [address] [place] [address], [place] [phone] [id number] from Last 3 Months or Most Recently Relevant to Health Maintenance Insurance [employer] Advance Directives * Full Code (Latest Code Status on File) Date Activated Date Inactivated Comments 06/15/2024 1:51 PM 06/15/2024 6:31 PM Care Teams Senior Risk Analyst Relationship Specialty Start Date End Date Brandon Suresh MD [address] [place] [address] PCP - General INTERNAL MEDICINE 01/22/24
--- OUTSIDE RECORDS SUMMARY | 2024-07-15 16:25 | XMS_ITS | Clinical Summary ---
Author Organization [address] Address [address] [place] [id number] Care Team Providers Care Holistic Health Practitioner Name Role Phone Rajan Rodriguez MD Primary Care Provider [phone] Allergies Active Allergy Reactions Criticality Noted Date [...] rhinitis. Assessment & Plan (07/16/2022 5:27 PM TELEGRAPH INSPECTOR): Continue with OTC Flonase and p.r.n. OTC [...] FLP. Assessment & Plan (07/16/2022 5:26 PM TELEGRAPH INSPECTOR): Target LDL less than 100. Continue current [...] CMP. Assessment & Plan (07/16/2022 5:27 PM TELEGRAPH INSPECTOR): Target BP <140/90. Continue current diet, labetalol [...] colonoscopy. Assessment & Plan (07/16/2022 5:26 PM TELEGRAPH INSPECTOR): Patient due for colonoscopy. Encouraged patient to [...] 12/01/2008 Td, adsorbed 08/10/2007 ZOSTER LIVE 08/10/2007 Surgical History Surgery Date Site/Laterality Comments HYSTERECTOMY 05/12/2001 - 05/11/2002 Hysterectomy HIP ARTHROPLASTY Right Hip replacement TOTAL KNEE ARTHROPLASTY Bilateral Medical History Medical History Date Comments Primary osteoarthritis of both knees 07/11/2015 Primary osteoarthritis of both knees Pain in joint involving pelv ic region and thigh 09/01/2013 JOINT PAIN-PELVIS Family History Medical History Relation Name Comments Other Brother 2 Cancer -sarcoma ; Cause of : Cancer -sarcoma Hyperthyroidism Daughter Hyperthyroid ism; Asthma Father Asthma; Other Father Bowel problems; Cause of : Bowel problems Prostate cancer Father Cancer -pros quevedo; Breast cancer Mother Cancer -breast ; Cause of : Cancer -breast Colon cancer Sister 2 Alda Fuller Cancer -co conchita; Other Sister 3 Shy Drager; Parkinsonism Sister 4 Parkinson's dis ease; Cause of : Parkinson's disease Relation Name Status Comments Brother 1 (Age 49) Brother 2 Daughter Father (Age 86) Mother (Age 74) Sister 1 (Age 62) Sister 2 Alda Fuller Alive Sister 3 Sister 4 Social History Tobacco Use Types Packs/Day Years [...] on file Legal Sex Female 7:41 PM TELEGRAPH INSPECTOR Gender Identity Not on file Sexual Orientation Not on file 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 Not on file Not on file Not on file Obstetrics History Last Filed Vital Signs Vital Sign Reading [...] 08/27/2023 12:59 PM CDT Plan of Treatment Health Maintenance Due Date Last Done Comments Hepatitis C Screening 1945 Osteoporosis Screening-Bone Density Scan 1945 Hepatitis B Screening 1962 DTaP/Tdap/Td Vaccine (1 - Tdap) 08/11/2007 8 Zoster Vaccine (2 of 3) 10/05/2007 08/10/2007 Covid-19 Vaccine (2023-2 5 season) 2024 04/11/2022, 03/28/2021, 07/14/2020, Additional history exists Influenza Vaccine (#1) 2024 , 04/11/2022, 02/27/2021, Additional history exists Depression Screening 02/14/2024 02/13/2023, 07/16/2022, 12/20/2021, Additional history exists Fall Risk Assessment 02/14/2024 02/13/2023, 07/16/2022, 12/20/2021, Additional history exists Well Visit 65+ 02/14/2024 02/13/2023, 12/10, 10/31/2020, Additional history exists Pneumococcal vaccine 65+ Discontinued 015, 03/13/2015, 12/01/2008 Colon Cancer Screening-CT Colonography Discontinued 05/09/2016 Colon Cancer Screening-Colonoscopy Discontinued 05/09/2016 Colon Cancer Screening-DNA Stool Discontinued 05/09/20 16 Colon Cancer Screening-FIT Discontinued 05/09/2016 Colon Cancer Screening-FOBT Discontinued 05/09/2016 Colon Cancer Screening-Sigmoidoscopy Discontinued 05/09/2016 Colorectal Cancer Screening Discontinued Procedures Procedure Name Priority Date/Time Associated Diagnosis Comments COLONOSCOPY Routine 05/09/2016 from Last 3 Months or Most Recently Relevant to Health Maintenance Results * Colonoscopy (05/09/2016) Anatomical Region Laterality Modality Other Rajan Rodriguez MD ENDOSCOPY PROCEDURES Final Re sult from Last 3 Months or Most Recently Relevant to Health Maintenance Insurance MEDICARE [facility] MEDICARE Address: [address] [address] [place] [address] [facility] MEDICARE [facility] MEDICARE Care Teams Holistic Health Practitioner Relationship Specialty Start Date End Date Rajan Rodriguez MD [address] [place] [address] DR Leodan LINN [address] [place] [id number] PCP - General 08/09/16
== END 2024-07-15 15:08 | disposition home or self-care (01) ==
LOC: ANHIMG 15:12
PROVIDERS: PCP Internal Medicine; Visit Provider Internal Medicine
DX: Z12.31 Encounter for screening mammogram for malignant neoplasm of breast (principal)
CPT/HCPCS: 77063; 77067